=== PATIENT | male | born 1940 | race Caucasian/White ===

== ENCOUNTER 2016-02-04 11:15 | Inpatient (IN) | payer OTHER ==
[~2016-02-04] VITALS: Ht 180.3 cm; Wt 79.4 kg
[~2016-02-04 11:15] MED LIST: ANALGESIC BALM30 GM TOP; ATORVASTATIN CA80 M1 PO; ECOTRIN81 MG PO; EFFIENT10 MG PO; LISINOPRIL2.5 MG PO
--- NOTE | 2016-02-04 11:30 | NUR ---
PT TO ED FOR WEAKNESS, EXERTIONAL SOB AND CHEST PRESSURE FOR THE PAST 24 HOURS. PT DENIES ABD PAIN, FEVER, NVD. PT HAS UROSTOMY AND COLOSTOMY - REPORTING OUTPUT HAS BEEN AT BASELINE. DENIES PALPITATION, DENIES DIZZINESS, DIAPHORESIS, REPORTING SOB RESOLVES AFTER A SHORT PERIOD OF TIME WHEN RESTING.
--- NOTE | 2016-02-04 11:40 | ED GENERAL ADULT ---
History of Present Illness General Chief Complaint: General Adult Stated Complaint: WEAKNESS,DIZZINESS, CP Source: patient Exam Limitations: poor historian Vital Signs & Intake/Output Vital Signs & Intake/Output Vital Signs Date Time Temp Pulse Resp B/P Pulse O2 O2 Flow FiO2 Ox Delivery Rate 02/03 1841 90 02/03 1802 98.0 69 20 122/62 95 Room Air 02/03 1713 97.7 83 18 108/51 95 Room Air 02/03 1356 98.9 96 18 105/58 97 Room Air 02/03 1207 97 02/03 1130 96.1 100 14 97/63 97 Room Air Allergies Coded Allergies: NO KNOWN ALLERGIES (01/29/15) Reconcile Medications Amoxicillin/Clavulanate Potass (Amox-Clav 875-125 MG Tablet) 875 MG-125 MG TABLET 1 TAB PO BID INFECTION (Reported) Aspirin (Aspirin*) 81 MG TAB.CHEW 1 TAB PO DAILY SUPPLEMENT (Reported) Atorvastatin (Atorvastatin Calcium) 80 MG TAB 80 MG PO DAILY CHOLESTEROL ( Reported) Cyanocobalamin (Vitamin B-12) (B-12) 1,000 MCG TABLET 1 TAB PO DAILY SUPPLEMENT (Reported) Folic Acid 1 MG TABLET 1 TAB PO DAILY SUPPLEMENT (Reported) Triage Note: PT TO ED FOR WEAKNESS, EXERTIONAL SOB AND CHEST PRESSURE FOR THE PAST 24 HOURS. PT DENIES ABD PAIN, FEVER, NVD. PT HAS UROSTOMY AND COLOSTOMY - REPORTING OUTPUT HAS BEEN AT BASELINE. DENIES PALPITATION, DENIES DIZZINESS, DIAPHORESIS, REPORTING SOB RESOLVES AFTER A SHORT PERIOD OF TIME WHEN RESTING. Triage Nurses Notes Reviewed? yes Onset: Abrupt Duration: day(s): Timing: recent history HPI: 02/04/16 12:05 PM 75-year-old male presents to the emergency department complaining of weakness, difficulty breathing, and chest pressure. The patient states that he has a past medical history of prostate cancer. He's is status post prostatectomy, cystectomy, colostomy, ureteroileostomy, flap revision. He's had multiple blood transfusions and ongoing anemia. His hemoglobin is been a low as 5 according to the family. Now he presents with the similar symptoms to when he needed a prior blood transfusion; weakness, chest discomfort, and difficulty breathing. He also has a history of atrial fibrillation and is currently not on anticoagulants. Past History Travel History Traveled to [place] past 21 day No Medical History Any Pertinent Medical History? see below for history Neurological: NONE EENT: [place] Cardiovascular: CAD (s/p stent x2), HTN, CHOL CARDIAC STENTS Respiratory: pneumonia Gastrointestinal: COLOSTOMY FISTULA Hepatic: NONE Renal: UROSTOMY BLADDER REMOVED PROSTATE REMOVED Musculoskeletal: NONE Psychiatric: NONE Endocrine: NONE Blood Disorders: NONE Cancer(s): prostate cancer History of MRSA: No History of VRE: No History of CDIFF: No Surgical History Surgical History: hernia repair-inguinal, urostomy colostomy rectocutaneous fistula fractured finger on left hand Psychosocial History Who do you live with Spouse Services at Home None What is your primary language Chadian Tobacco Use: Current Daily Use Daily Tobacco Use Amount/Type: => 5 Cigarettes daily ETOH Use: occasional use Illicit Drug Use: denies illicit drug use Family History Hx Contributory? No Review of Systems Review of Systems Constitutional: Denies: fever. EENTM: Denies: visual changes. Respiratory: Reports: short of breath. Cardiovascular: Reports: chest pain. GI: Denies: abdominal pain. Genitourinary: Reports: no symptoms. Musculoskeletal: Reports: no symptoms. Skin: Reports: no symptoms. Neurological/Psychological: Reports: no symptoms. Hematologic/Endocrine: Reports: no symptoms. Physical Exam Physical Exam General Appearance: alert, awake, anxious, moderate distress Head: atraumatic, normal appearance Eyes: Bilateral: normal appearance, PERRL, EOMI. Ears, Nose, Throat: normal pharynx, normal ENT inspection Neck: normal inspection, supple Respiratory: decreased breath sounds Cardiovascular: regular rate/rhythm Peripheral Pulses: 4+ radial (R), 4+ radial (L) Gastrointestinal: non-tender, colostomy and ureteroileostomy Rectal: heme positive stool, per RN Extremities: no edema Neurologic/Psych: awake, alert, oriented x 3 Skin: pallor Core Measures ACS in differential dx? Yes ASA ordered for poss ACS? No-d/t bleeding/risk of (anemia, guaiac positive colost) CVA/TIA Diagnosis: No Severe Sepsis Present: No Septic Shock Present: No Progress Differential Diagnoses I considered the following diagnoses in my evaluation of the patient: [GI bleed, acute coronary syndrome, symptomatic anemia, pulmonary embolism] Plan of Care: Orders Procedure Date/time Status MAGNESIUM 02/04 600 Active CBC WITHOUT DIFFERENTIAL 02/04 600 Active BASIC ELECTROLYTES PLUS BUN&CR 12/30 0600 Active TROPONIN LEVEL 12/30 0100 Active Nothing by Mouth 02/03 D Active BLOOD PRODUCT PICKUP 02/03 1959 Active Lab Add-on Test 02/03 1859 Active Drains/Tubes 02/03 1841 Complete CIWA 02/03 1841 Active PHOSPHORUS 02/03 1840 Complete MAGNESIUM 02/03 1840 Complete TROPONIN LEVEL 02/03 1800 Complete CBC WITHOUT DIFFERENTIAL 02/03 1800 Complete EKG 02/03 1800 Active Nursing Misc 02/03 1758 Active Teach/Educate 02/03 1732 Active Nutritional Intake, Monitor 02/03 1732 Active Isolation 02/03 1732 Active Intake & Output 02/03 1732 Active Patient Care Conference 02/03 1732 Active Activity/Ambulation 02/03 1732 Active BLOOD PRODUCT PICKUP 02/03 1708 Active URINALYSIS 02/03 1521 Complete Pathway - chart 02/03 1455 Active Patient Data 02/03 1410 Active Admit to inpatient 02/03 1406 Active Vital Signs 02/03 1406 Active Code Status 02/03 1406 Active BLOOD PRODUCT PICKUP 02/03 1248 Active TYPE & SCREEN (NOT X-MATCH) 02/03 1244 Active LEUKOCYTE POOR (PACKED CELLS) 02/03 1234 Active D-DIMER 02/03 1159 Complete TROPONIN LEVEL 02/03 1142 Complete PROTHROMBIN TIME 02/03 1142 Complete COMPREHENSIVE METABOLIC PANEL 02/03 1142 Complete CBC WITHOUT DIFFERENTIAL 02/03 1142 Complete EKG 02/03 1117 Active Saline Lock 02/03 UNK Active House Staff 02/03 UNK Active VTE Mechanical Prophylaxis 02/03 UNK Active Nursing Misc 02/03 UNK Active Hemoccult 02/03 UNK Active EKG 02/03 UNK Active Current Medications Sig/Stephanie Start time Last Medication Dose Stop Time Status Admin Potassium Chloride 40 MEQ .Q10H 02/03 1500 CAN (KCL 40MEQ in D5 1000ml) Dextrose/Water 1,000 ML (D5W 1000) Sodium Chloride 1,000 ML ONCE ONE 02/03 1215 AC (Normal Saline 0.9%) 02/04 0814 Laboratory Tests 02/04/16 1840: Phosphorus 2.8, Magnesium 1.9, Troponin I 0.11 *H, CBC w Diff NO MAN DIFF REQ, RBC 2.81 L, MCV 88.0, MCH 27.8, RDW 16.5 H, MPV 9.0, Gran % 72.6, Lymphocytes % 16.6 L, Monocytes % 7.9, Eosinophils % 2.1, Basophils % 0.8, Absolute Granulocytes 7.5 H, Absolute Lymphocytes 1.7, Absolute Monocytes 0.8 H, Absolute Eosinophils 0.2, Absolute Basophils 0.1, PUBS MCHC 31.6 L 02/04/16 1523: Urine Color YEL, Urine Clarity HAZY H, Urine pH 6.5, Ur Specific [place] 1.010, Urine Protein TRACE H, Urine Ketones NEG, Urine Nitrite POS H, Urine Bilirubin NEG, Urine Urobilinogen 0.2, Ur Leukocyte Esterase LARGE H, Ur Microscopic SEDIMENT EXAMINED, Urine RBC 1-3, Urine WBC > 75 H, Urine Hemoglobin SMALL H, Urine Glucose NEG 02/04/16 1202: D-Dimer Cancelled 02/04/16 1159: Anion Gap 9, Estimated GFR > 60, BUN/Creatinine Ratio 63.8 H, Glucose 230 H, Calcium 8.8, Total Bilirubin 0.4, AST 19, ALT 40, Alkaline Phosphatase 57, Troponin I 0.06, Total Protein 6.0 L, Albumin 3.1 L, Globulin 2.9, Albumin/ Globulin Ratio 1.1, PT 11.5, INR 1.10, D-Dimer 343 H, CBC w Diff NO MAN DIFF REQ, RBC 2.65 L, MCV 87.9, MCH 27.9, RDW 17.4 H, MPV 9.5, Gran % 81.6 H, Lymphocytes % 10.2 L, Monocytes % 6.3, Eosinophils % 1.2, Basophils % 0.7, Absolute Granulocytes 10.1 H, Absolute Lymphocytes 1.3, Absolute Monocytes 0.8 H, Absolute Eosinophils 0.2, Absolute Basophils 0.1, PUBS MCHC 31.7 L Initial ED EKG: NSR, nonspecific ST T wave chg Prior EKG: unchanged Departure Departure Disposition: STILL A PATIENT Condition: Stable Clinical Impression Primary Impression: Symptomatic anemia Secondary Impressions: Chest pain, GI bleed Referrals: LÓPEZ SANDERSON,IMMANUEL Henderson (PCP/Family) Referred to [facility] as new patient No Departure Forms: Customer Survey General Discharge Information Comments The patient was placed on a monitor. He was given blood in the ED. He was admitted to the telemetry unit for serial troponins, blood transfusion, and further care. Chest x-ray was negative IMPRESSION: No acute cardiopulmonary pathology compared to 01/30/2015. DICTATED BY: MURALI REICH MD DATE/TIME DICTATED:02/04/161305 [employer] PANELS PLATER:ARGELIA DATE/TIME TRANSCRIBED:02/04/161305 CONFIDENTIAL, DO NOT COPY WITHOUT APPROPRIATE AUTHORIZATION. <Electronically signed in Other Vendor System> SIGNED BY: MURALI REICH MD 02/04/16 1312 Admission Note Spoke With: JAI JIMENEZ M.D Documentation of Exam: Documentation of any treatments & extenuating circumstances including Concerns Regarding Discharge (functional status, medication knowledge or non-compliance, living conditions, etc.) that warrant an admission rather than observation: [GI CONSULT, BLOOD, SERIAL TROPONINS] Critical Care Note Critical Care Note Critical Care Time: 30-74 min
--- NOTE | 2016-02-04 12:04 | NUR ---
LABS DRAWN AND SENT (BLUE,SST,PINK,LAV,DICKEY)
--- NOTE | 2016-02-04 12:09 | NUR ---
TRIAGE NOTE APPRECIATED PT A/O X3
[2016-02-04 12:24] LABS: PT 11.5 SEC (9.4-12.5)
[2016-02-04 12:26] LABS: ABSOLUTE BASOPHIL COUNT 0.1 /CUMM (0.0-0.2); ABSOLUTE EOSINOPHIL COUNT 0.2 /CUMM (0.0-0.7); ABSOLUTE GRANULOCYTE CT 10.1 /CUMM (1.4-6.5); ABSOLUTE LYMPH COUNT 1.3 /CUMM (1.2-3.4); ABSOLUTE MONOCYTE COUNT 0.8 /CUMM (0.10-0.60); BASOPHIL % 0.7 % (0.0-2.0); EOSINOPHIL % 1.2 % (0-5); GRANULOCYTE % 81.6 % (42.2-75.2); HEMATOCRIT 23.3 % (42-52); MEAN CORPUSCULAR HGB 27.9 PG (27.0-31.0); MEAN CORPUSCULAR HGB CONC 31.7 G/DL (33.0-37.0); MEAN CORPUSCULAR VOLUME 87.9 FL (80.0-94.0); MEAN PLATELET VOLUME 9.5 FL (7.4-10.4); PLATELET COUNT 269 /CUMM (130-400); RBC DISTRIBUTION WIDTH 17.4 % (11.5-14.5); RED BLOOD CELL CT 2.65 /CUMM (4.70-6.10); WHITE BLOOD CELL COUNT 12.3 /CUMM (4.8-10.8)
--- NOTE | 2016-02-04 12:33 | NUR ---
CRITICAL TEST RESULTS [id number] NORMAN TERRAZAS 75 M TESTS AND RESULTS: HGB 7.4 HCT 23.3 Results received and read back by: LUPIS FAGAN Results received date and time: 02/04/16 1233 The following provider was notified of the results, and read the results back: DR. RESTREPO Notified date and time: 02/04/16 at 1233
--- NOTE | 2016-02-04 12:40 | NUR ---
CONSENT SIGNED FOR BLOOD TRANSFUSION
--- NOTE | 2016-02-04 13:12 | RADIOLOGY REPORT ---
EXAMINATION: XR PORTABLE CHEST CLINICAL INFORMATION: Shortness of breath. COMPARISON: CXR from 01/30/2015 TECHNIQUE: Portable view of the chest was obtained. FINDINGS: The patient is slightly rotated to the left. Minimal atelectasis in the lingula adjacent to the pericardiac fat pad -- similar in appearance compared to 01/30/2015. No acute pulmonary consolidation, edema or pleural effusion. Cardiac silhouette is at the upper range of normal size. The bones appear diffusely osteopenic and there is dextrocurvature of the visualized thoracolumbar spine. IMPRESSION: No acute cardiopulmonary pathology compared to 01/30/2015.
[2016-02-04] MEDS ORDERED: B-121000 MC3 PO (13:27)
[2016-02-04] MEDS ORDERED: FOLIC ACID1 M1 PO (13:27)
[2016-02-04] MEDS ORDERED: ASPIRIN81 M4 PO (13:28)
[2016-02-04] MEDS ORDERED: ATORVASTATIN CA80 M1 PO (13:28)
--- NOTE | 2016-02-04 13:48 | History & Physical ---
SHMUEL SANDERSON[place] [place]7: General Information and HPI MD Statement: I have seen and personally examined NORMAN TERRAZAS and documented this H&P. The patient is a 75 year old M who presented with a patient stated chief complaint of weakness . 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 Patient had some chest discomfort last night which has since resolved. He also reports that his stools have been progressively getting darker. Patient was hospitalized for multiple similar episodes in the past 6-8 months in his home town of [place] , the last one in September 2015, during which he was found to be anemic, subsequently receiving blood transfusions. Per patient, work-up during those hospitalizations including endoscopy and colonoscopy has been negative. Patient was hospitalized here at [facility] in January 2015 for an acute lower GI bleed which required multiple blood transfusions and underwent evaluation under anesthesia with concomitant flexible sigmoidoscopy performed by colorectal surgical team which showed large amount of blood clots in the rectum resulting from the large communication between the distal rectum and prostate bed, with no evidence of active bleeding. Allergies/Medications Allergies: Coded Allergies: NO KNOWN ALLERGIES (01/29/15) Past History Travel History Traveled to [place] past 21 day No Medical History Blood Transfusion Hx: Yes Neurological: NONE EENT: AKIAK Cardiovascular: CAD (s/p stent x2), hypertension Respiratory: pneumonia Gastrointestinal: COLOSTOMY FISTULA Hepatic: NONE Renal: UROSTOMY BLADDER REMOVED PROSTATE REMOVED Musculoskeletal: NONE Psychiatric: NONE Endocrine: NONE Blood Disorders: NONE Cancer(s): prostate cancer History of MRSA: No History of VRE: No History of CDIFF: No Surgical History Surgical History: hernia repair-inguinal, urostomy colostomy rectocutaneous fistula fractured finger on left hand, colostomy, cystoprostatectomy Past Family/Social History Psychosocial History Where do you live? Home Who Do You Live With? spouse Services at Home: None Smoking Status: Current Everyday Smoker (< 1 PPD for ~50 years) ETOH Use: 2 glasses of scotch per day Illicit Drug Use: denies illicit drug use Functional Ability ADLs Independent: dressing, eating, toileting, bathing. Ambulation: independent IADLs Independent: shopping, housework, finances, food prep, telephone, transportation , medication admin. Employment History Employment Retired Profession/Employer [employer] Review of Systems Review of Systems Constitutional: Reports: weakness. Denies: chills, fever. EENTM: Reports: no symptoms. Cardiovascular: Reports: chest pain. Denies: edema, palpitations, syncope. Respiratory: Reports: cough, short of breath. Denies: sputum production. GI: Reports: melena. Denies: abdominal pain, constipation, diarrhea, nausea, vomiting. Genitourinary: Denies: dysuria, frequency, hematuria. Musculoskeletal: Reports: no symptoms. Skin: Reports: no symptoms. Neurological/Psychological: Reports: no symptoms. Hematologic/Endocrine: Reports: bleeding. Denies: bruising. Immunologic/Allergic: Reports: no symptoms. All Other Systems: Reviewed and Negative Exam & Diagnostic Data Last 24 Hrs of Vital Signs/I&O Vital Signs Date Time Temp Pulse Resp B/P Pulse O2 O2 Flow FiO2 Ox Delivery Rate 02/03 1841 90 02/03 1802 98.0 69 20 122/62 95 Room Air 02/03 1713 97.7 83 18 108/51 95 Room Air 02/03 1356 98.9 96 18 105/58 97 Room Air 02/03 1207 97 02/03 1130 96.1 100 14 97/63 97 Room Air Intake & Output 02/03 1600 02/03 0800 02/03 0000 Intake Total Output Total Balance Patient 79.379 kg Weight Physical Exam General Appearance Alert, Oriented X3, No Acute Distress Skin Conjunctival Pallor HEENT Mucous Membr. moist/pink Neck Supple, No JVD, +2 Carotid Pulse wo Bruit Cardiovascular Regular Rate, Normal S1, Normal S2, Grade 3/6 Systolic Murmur Best [place] Lungs Clear to Auscultation, Tachypneic Abdomen Soft, No Tenderness, Positive Bowel Sounds, Right-Sided Urostomy, Left- Sided Colostomy Neurological No Gross Focal Deficits Noted Extremities No Clubbing, No Cyanosis, Trace Edema on Bilateral Lower Extremities , L >> R Last 24 Hrs of Labs/Julian: Laboratory Tests 02/04/16 1840: Phosphorus 2.8, Magnesium 1.9, Troponin I 0.11 *H, CBC w Diff NO MAN DIFF REQ, RBC 2.81 L, MCV 88.0, MCH 27.8, RDW 16.5 H, MPV 9.0, Gran % 72.6, Lymphocytes % 16.6 L, Monocytes % 7.9, Eosinophils % 2.1, Basophils % 0.8, Absolute Granulocytes 7.5 H, Absolute Lymphocytes 1.7, Absolute Monocytes 0.8 H, Absolute Eosinophils 0.2, Absolute Basophils 0.1, PUBS MCHC 31.6 L 02/04/16 1523: Urine Color YEL, Urine Clarity HAZY H, Urine pH 6.5, Ur Specific [place] 1.010, Urine Protein TRACE H, Urine Ketones NEG, Urine Nitrite POS H, Urine Bilirubin NEG, Urine Urobilinogen 0.2, Ur Leukocyte Esterase LARGE H, Ur Microscopic SEDIMENT EXAMINED, Urine RBC 1-3, Urine WBC > 75 H, Urine Hemoglobin SMALL H, Urine Glucose NEG 02/04/16 1202: D-Dimer Cancelled 02/04/16 1159: Anion Gap 9, Estimated GFR > 60, BUN/Creatinine Ratio 63.8 H, Glucose 230 H, Calcium 8.8, Total Bilirubin 0.4, AST 19, ALT 40, Alkaline Phosphatase 57, Troponin I 0.06, Total Protein 6.0 L, Albumin 3.1 L, Globulin 2.9, Albumin/ Globulin Ratio 1.1, PT 11.5, INR 1.10, D-Dimer 343 H, CBC w Diff NO MAN DIFF REQ, RBC 2.65 L, MCV 87.9, MCH 27.9, RDW 17.4 H, MPV 9.5, Gran % 81.6 H, Lymphocytes % 10.2 L, Monocytes % 6.3, Eosinophils % 1.2, Basophils % 0.7, Absolute Granulocytes 10.1 H, Absolute Lymphocytes 1.3, Absolute Monocytes 0.8 H, Absolute Eosinophils 0.2, Absolute Basophils 0.1, PUBS MCHC 31.7 L Diagnostic Data EKG Results Sinus rhythm HR 97 Probable left atrial abnormality Borderline left axis deviation QTc 493 CXR Results No acute cardiopulmonary pathology compared to 01/30/2015. 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 #ABLA 2/2 GI Bleed: Hgb 7.4, guaiac positive stools and elevated BUN 51 concerning for acute bleed. Although melena would be more consistent with upper GI bleeding, lower GI bleeding is a possibility as well given patient's history of rectocutaneous fistula s/p diverting end colostomy as well as recent history of lower GI bleed. * GI and Colorectal surgery consulted. Appreciate their recs. * Two large bore IVs inserted. * Keep patient NPO. * Type and screen ordered. * Protonix 40 mg IV Q12H started. * Will transfuse 2 units of pRBCs. * Monitor H/H and transfuse as needed to keep Hgb > 8 in the setting of CAD. * Avoid all anti-coagulants and anti-platelet agents. #CAD: S/p stent placement x 2. First set of troponins negative. EKG with NSR and no ST-T wave abnormalities. * Cardiology consulted. Appreciate their recs. * Continuous telemetry monitoring. * Trend serial troponins and EKG. #Infrarenal AAA: History of infrarenal AAA with CT Abdomen/Pelvis in January 2015 that had shown increase in size from 4.2 cm to 4.5 cm. * Abdominal US US ordered to evaluate for interval increase in size of aneurysm. #Elevated d-dimer: D-dimer slightly elevated at 343 concerning for thrombosis. Although patient has asymmetric BLE on exam, L >> R, this is chronic per patient 2/2 to rectocutaneous fistula. * Doppler US ordered to rule out DVT. #HFpEF: Most recent ECHO with LVEF of 80%. No signs of volume overload on exam. CXR with no evidence of pulmonary edema. No evidence of decompensated CHF. Diet: NPO DVT PPx: ALPs CODE: FULL As Ranked By This Provider Problem List: 1. Rectocutaneous fistula 2. GI bleed 3. Acute blood loss anemia 4. Symptomatic anemia 5. Aneurysm of infrarenal abdominal aorta 6. H/O heart artery stent 7. CAD (coronary artery disease) 8. Melena 9. Atrial fibrillation Core Measures/Miscellaneous Acute Coronary Syndrome ACS Diagnosis: No Cerebrovascular Accident CVA/TIA Diagnosis: No Congestive Heart Failure CHF Diagnosis: No Venous Thromboembolism VTE Risk Factors: Acute medical illness, Age > 40, Smoking VTE Prophylaxis Ordered Inpt: Mechanical (ALPS/TEDS) No Mech VTE prophylaxis d/t: No contraindications No VTE Pharm Prophylaxis d/t: Active bleeding VTE Diagnosis: No VTE Type: NONE VTE Confirmed by (Test): NONE Severe Sepsis Severe Sepsis Present: No Septic Shock Septic Shock Present: No Miscellaneous Documentation Attending Case Discussed With: VITOR POWELL MD Primary Care Physician: IMMANUEL DAWN MD Patient sees these [facility] in [place] Level of Patient Care: Telemetry JULIO SANDERSON,GUTIERREZ 02/04/16 1536: Resident Review Statement Resident Statement: examined this patient, discussed with sports intern, agreed with sports intern, discussed with family, reviewed EMR data (avail), discussed with nursing , discussed with case mgmt, reviewed images, amended to note Other Findings: Norman is a 77-year-old man with a medical history of prostate cancer status post radiation therapy approximately 13 years ago which was complicated by a rectourethral fistula, and subsequently had a prostatectomy with cystectomy and ileal conduit formation 7 years ago. Which resulted in a rectum to prostate fossa to left inguinal crease fistula i.e. rectocutaneous fistula requiring diverting end colostomy 2 years ago, coronary artery disease status post PCI 2 stents 01/13/2015, was hospitalized in 01/31/2015 for an acute lower GI bleed requiring multiple blood transfusions, and ICU admission, and evaluation under anesthesia with concomitant flexible sigmoidoscopy performed by colorectal surgical team. Additionally, he has a history of atrial fibrillation, some day smoker, diastolic congestive heart failure with ejection fraction of 80%, he has an infrarenal abdominal aortic aneurysm with a 4.5 cm diameter chest increased since the previous study. At present the patient presents with complaints of weakness dizziness dyspnea, and mild intermittent chest discomfort as well as melanotic stooling. At the time of evaluation, he still feels quite uncomfortable, continues to complain of shortness of breath, weakness poor appetite and chest discomfort. Vital signs: Temperature 90.6F heart rate is 100 bpm, blood pressure is 97/63 mmHg, oxygen saturation 97% on room air. Hemoglobin is 7.4. Chemistries notable for elevated BUN 51. First set of troponin negative, and EKG demonstrates normal sinus rhythm without evidence of ischemia. A d-dimer was checked in the emergency department which is slightly elevated at 343. Chest x-ray is clear.*, He is receiving blood transfusions and fluid bolus in the emergency department. Given the patient's symptoms, in conjunction with hemoglobin and blood urea nitrogen elevation consistent with an acute blood loss anemia likely in the gastrointestinal tract. - Problems - Acute GIB Acute bloos loss anemia CAD HFpEF (Hyperdynamic EF) AAA Elevated D-Dimer - Plan - Continues cardiac telemetry monitoring Maintain 2 large-bore IVs Type and screen Serial CBC Guaiac all stool Follow-up urinalysis Obtain serial enzymes and EKG Continue packed red blood cell transfusion for hemoglobin greater than or equal to 8 Avoid all anticoagulants and antiplatelet medications IV Protonix 40 mg every 12 Keep nothing by mouth Urgent GI consultation Consider colorectal surgery evaluation Obtain ultrasound of aorta Consider lower extremity Doppler ultrasound Cardiology evaluation DVT prophylaxis Alps Full code [facility] 1624: General Information and HPI Allergies/Medications Home Med list Amoxicillin/Clavulanate Potass (Amox-Clav 875-125 MG Tablet) 875 MG-125 MG TABLET 1 TAB PO BID INFECTION (Reported) Aspirin (Aspirin*) 81 MG TAB.CHEW 1 TAB PO DAILY SUPPLEMENT (Reported) Atorvastatin (Atorvastatin Calcium) 80 MG TAB 80 MG PO DAILY CHOLESTEROL ( Reported) Cyanocobalamin (Vitamin B-12) (B-12) 1,000 MCG TABLET 1 TAB PO DAILY SUPPLEMENT (Reported) Folic Acid 1 MG TABLET 1 TAB PO DAILY SUPPLEMENT (Reported) Metoprolol Succinate 25 MG TAB 1 TAB PO DAILY ABDOMINAL AORTIC ANEURYSM Omeprazole Magnesium (Prilosec Otc) 20 MG TABLET.DR 1 TAB PO DAILY STOMACH HEALTH Attending MD Review Statement Attending Statement Attending MD Statement: examined this patient, discuss w/resident/PA/POWER SYSTEMS ENGINEER, agreed w/resident/PA/POWER SYSTEMS ENGINEER, reviewed EMR data (avail) Attending Assessment/Plan: 75M PMH prostate cancer s/p radiotherapy 10+ years ago c/b rectrourethral fistula s/p prostatectomy, cystectomy and ileal conduit, also complicated by rectocutaneous fistula s/p diverting colostomy, CAD s/p stent x2 1 year ago, history of upper and lower GI bleed, paroxysmal atrial fibrillation, active smoker, chronic diastolic CHF, AAA 4.5cm, presenting with weakness, fatigue, lightheadedness and melanotic stools in the setting of upper GI bleed. Received 2 units pRBC on admission, Hgb now stable at 8.1 Plan - Admit to telemetry - Follow GI recommendations - Continue PPI - Continue home medications - Recheck Hgb tonight and tomorrow morning - NPO for EGD
[2016-02-04] MEDS ORDERED: AMOX-CLAV 875-1 EACH PO (13:58)
--- NOTE | 2016-02-04 13:58 | NUR ---
BLOOD TRANSFUSION STARTED DIRECTED VSS PT COMFORTABLE AT THIS TIME
--- NOTE | 2016-02-04 14:38 | NUR ---
PT HAS A BED 172
--- NOTE | 2016-02-04 15:10 | NUR ---
PT RESTING NO DISTRESS NOTED
--- NOTE | 2016-02-04 16:27 | NUR ---
PT TO US
--- NOTE | 2016-02-04 16:41 | NUR ---
PHARMACY MIXING [facility]
--- NOTE | 2016-02-04 17:11 | NUR ---
PT RETURNED FROM US [facility] INFUSING DIRECTED TRANSPORT CALLED
--- NOTE | 2016-02-04 17:30 | ULTRASOUND REPORT ---
EXAMINATION: US TRIPLEX LOWER EXTREMITY, BILATERAL CLINICAL INFORMATION: Elevated d-dimer. Chest pain. COMPARISON: None. TECHNIQUE: Color-flow triplex imaging with spectral analysis and compression Doppler were performed on the bilateral lower extremities. FINDINGS: Respiratory variation, normal compression and augmented flow are noted throughout the bilateral lower extremities. The visualized common femoral vein, superficial femoral vein, profunda femoral vein, popliteal vein and mid calf peroneal and posterior tibial venous segments show no evidence of deep venous thrombosis. There is a popliteal cyst measuring 0.8 x 0.9 x 0.5 cm IMPRESSION: Normal triplex scan without evidence of deep venous thrombosis involving the bilateral lower extremities.
--- NOTE | 2016-02-04 17:44 | ULTRASOUND REPORT ---
EXAMINATION: US RETROPERITONEAL LIMITED (AORTA) CLINICAL INFORMATION: Evaluate for abdominal aortic aneurysm. COMPARISON: CT abdomen and pelvis with contrast 01/30/2015. TECHNIQUE: Grayscale, color Doppler and spectral Doppler evaluation of the abdominal aorta. FINDINGS: Limited exam secondary to overlying bowel gas. The proximal segment of the abdominal aorta is obscured by overlying bowel gas. The distal segment of the abdominal aorta is aneurysmally dilated, as detailed below. The measurements of the aorta in maximum AP and transverse dimensions respectively are as follows: Proximal: Obscured secondary to overlying bowel gas. Mid: 2.0 x 2.0 cm. Distal: 3.9 x 4.5 cm. The measurements of the common iliac arteries in maximum AP dimension are as follows: Right Common Iliac Artery: 0.5 cm. Left Common Iliac Artery: 0.5 cm. IMPRESSION: Limited exam secondary to overlying bowel gas. The proximal segment of the abdominal aorta is obscured by overlying bowel gas. The distal segment of the abdominal aorta is aneurysmally dilated and is visualized measuring 3.9 x 4.5 cm in AP and transverse dimensions respectively, not significantly changed in caliber relative to a prior contrast-enhanced CT of the abdomen and pelvis dating back to 01/30/2015 in which it measured 4.3 x 4.4 cm in similar dimensions. Differences in measurements between the aneurysm sac are likely secondary to differences in technique.
[2016-02-04 18:02] VITALS: BP 122/62
[2016-02-04 19:37] LABS: ABSOLUTE BASOPHIL COUNT 0.1 /CUMM (0.0-0.2); ABSOLUTE EOSINOPHIL COUNT 0.2 /CUMM (0.0-0.7); ABSOLUTE LYMPH COUNT 1.7 /CUMM (1.2-3.4); ABSOLUTE MONOCYTE COUNT 0.8 /CUMM (0.10-0.60); RBC DISTRIBUTION WIDTH 16.5 % (11.5-14.5)
[2016-02-04 19:41] LABS: ABSOLUTE GRANULOCYTE CT 7.5 /CUMM (1.4-6.5); BASOPHIL % 0.8 % (0.0-2.0); EOSINOPHIL % 2.1 % (0-5); GRANULOCYTE % 72.6 % (42.2-75.2); HEMATOCRIT 24.8 % (42-52); MEAN CORPUSCULAR HGB 27.8 PG (27.0-31.0); MEAN CORPUSCULAR HGB CONC 31.6 G/DL (33.0-37.0); PLATELET COUNT 239 /CUMM (130-400); RED BLOOD CELL CT 2.81 /CUMM (4.70-6.10); WHITE BLOOD CELL COUNT 10.3 /CUMM (4.8-10.8)
--- NOTE | 2016-02-04 21:57 | Cons- Gastroenterology ---
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 Earlier this year he had chronic/recurrent bleeding (in [place], records not available) with Hemoccult-positive to melenic stools in his colostomy bag. He required numerous transfusions. Apparently, EGD was unrevealing, and colonoscopy did not reveal a bleeding site, although polyps were removed (he claims two were left intact, for unclear reasons, and are to be removed at a later date). His hemoglobin apparently stabilized in about September, and was climbing by December. The patient is visiting family in [place] for the holidays. Over the past several days his stools have been darker. He developed significant dyspnea and brief episodic chest pain, similar to when he was anemic earlier this year. He was found to be anemic in the emergency room, and his stool guaiac positive. The patient has belching, but no heartburn, dyspepsia, dysphagia, abdominal pain , diarrhea. There is no known liver disease. He has coronary stents but takes aspirin only, and no other antiplatelet or anticoagulation agents. Family history is negative for peptic ulcer disease, GI malignancy. Social history: the patient smokes cigarettes daily; no significant alcohol. Allergies/Medications Allergies: Coded Allergies: NO KNOWN ALLERGIES (01/29/15) Home Med List: Amoxicillin/Clavulanate Potass (Amox-Clav 875-125 MG Tablet) 875 MG-125 MG TABLET 1 TAB PO BID INFECTION (Reported) Aspirin (Aspirin*) 81 MG TAB.CHEW 1 TAB PO DAILY SUPPLEMENT (Reported) Atorvastatin (Atorvastatin Calcium) 80 MG TAB 80 MG PO DAILY CHOLESTEROL ( Reported) Cyanocobalamin (Vitamin B-12) (B-12) 1,000 MCG TABLET 1 TAB PO DAILY SUPPLEMENT (Reported) Folic Acid 1 MG TABLET 1 TAB PO DAILY SUPPLEMENT (Reported) Current Medications: Current Medications Sig/Stephanie Start time Last Medication Dose Route Stop Time Status Admin Magnesium Sulfate 1 GM ONCE ONE 02/03 2015 AC 02/03 Dextrose/Water 100 ML IV 02/04 0014 2130 Pantoprazole Sodium 0 .STK-MED ONE 02/03 1530 DC IV Pantoprazole Sodium 40 MG Q12 02/03 1516 AC 02/03 Sodium Chloride 100 ML IV 2130 Potassium Chloride 40 MEQ Q10H 02/03 1615 AC 02/03 Dextrose/Water 1,000 ML IV 1710 Potassium Chloride 40 MEQ .Q10H 02/03 1500 CAN Dextrose/Water 1,000 ML IV Sodium Chloride 1,000 ML ONCE ONE 02/03 1215 AC IV 02/04 0814 Past History Travel History Traveled to [place] past 21 day No Medical History Blood Transfusion Hx: Yes Neurological: NONE EENT: [place] Cardiovascular: CAD (s/p stent x2), HTN, CHOL CARDIAC STENTS IRR HEARTBEAT Respiratory: pneumonia Gastrointestinal: COLOSTOMY FISTULA REPAIRED Hepatic: NONE Renal: UROSTOMY BLADDER REMOVED PROSTATE REMOVED HAS CATH IN PENIS FOR DRA ROBLES Musculoskeletal: ARTHRITIS Psychiatric: NONE Endocrine: NONE Blood Disorders: NONE Cancer(s): prostate cancer Surgical History Surgical History: hernia repair-inguinal, urostomy colostomy rectocutaneous fistula fractured finger on left hand Psychosocial History Where Do You Live? Home Services at Home: None Smoking Status: Current Everyday Smoker ETOH Use: occasional use Illicit Drug Use: denies illicit drug use Functional Ability ADLs Independent: dressing, eating, toileting, bathing. Ambulation: independent IADLs Independent: shopping, housework, finances, food prep, telephone, transportation , medication admin. Review of Systems Review of Systems Constitutional: Denies: chills, fever. EENTM: Denies: icterus, epistaxis. Cardiovascular: Reports: chest pain. Denies: edema, palpitations, syncope. Respiratory: Reports: cough, short of breath. GI: Reports: see HPI. Genitourinary: Denies: hematuria, pain. Musculoskeletal: Denies: muscle stiffness, neck pain. Skin: Denies: jaundice, lesions. Neurological/Psychological: Denies: anxiety, confusion. Hematologic/Endocrine: Reports: bleeding. Denies: bruising. Exam & Diagnostic Data Vital Signs and I&O Vital Signs Date Time Temp Pulse Resp B/P Pulse O2 O2 Flow FiO2 Ox Delivery Rate 02/03 1841 90 02/03 1802 98.0 69 20 122/62 95 Room Air 02/03 1713 97.7 83 18 108/51 95 Room Air 02/03 1356 98.9 96 18 105/58 97 Room Air 02/03 1207 97 02/03 1130 96.1 100 14 97/63 97 Room Air Intake & Output 02/03 1600 02/03 0400 02/02 1600 02/02 0400 02/01 1600 02/01 0400 Intake Total Output Total Balance Patient 175 lb Weight Physical Exam: Well-developed well-nourished, no apparent distress. Alert and oriented with normal cognition. Coughing. Skin without lesion, jaundice. No adenopathy. Sclera anicteric. No oropharyngeal lesion. No neck masses or thyromegaly. Heart regular rhythm with a 3/6 holosystolic murmur. Lungs clear bilaterally. Abdomen nondistended and soft with normal bowel sounds. Right sided urine collecting bag; left-sided colostomy. Perineum/rectum examination deferred. No tenderness, mass or organomegaly. Extremities with trace edema. Pulses intact. Results Pertinent Lab Results: Laboratory Tests 02/03 02/03 1840 1523 Chemistry Phosphorus (2.5 - 4.5 mg/dL) 2.8 Magnesium (1.6 - 2.3 mg/dL) 1.9 Troponin I (<0.11 ng/ml) 0.11 *H Hematology CBC w Diff NO MAN DIFF REQ WBC (4.8 - 10.8 /CUMM) 10.3 RBC (4.70 - 6.10 /CUMM) 2.81 L Hgb (14.0 - 18.0 G/DL) 7.8 L Hct (42 - 52 %) 24.8 L MCV (80.0 - 94.0 FL) 88.0 MCH (27.0 - 31.0 PG) 27.8 RDW (11.5 - 14.5 %) 16.5 H Plt Count (130 - 400 /CUMM) 239 MPV (7.4 - 10.4 FL) 9.0 Gran % (42.2 - 75.2 %) 72.6 Lymphocytes % (20.5 - 51.1 %) 16.6 L Monocytes % (1.7 - 9.3 %) 7.9 Eosinophils % (0 - 5 %) 2.1 Basophils % (0.0 - 2.0 %) 0.8 Absolute Granulocytes (1.4 - 6.5 /CUMM) 7.5 H Absolute Lymphocytes (1.2 - 3.4 /CUMM) 1.7 Absolute Monocytes (0.10 - 0.60 /CUMM) 0.8 H Absolute Eosinophils (0.0 - 0.7 /CUMM) 0.2 Absolute Basophils (0.0 - 0.2 /CUMM) 0.1 PUBS MCHC (33.0 - 37.0 G/DL) 31.6 L Urines Urine Color (YEL,AMB,STR) YEL Urine Clarity (CLEAR) HAZY H Urine pH (5.0 - 8.0) 6.5 Ur Specific [place] (1.001 - 1.035) 1.010 Urine Protein (NEG,<30 MG/DL) TRACE H Urine Ketones (NEG) NEG Urine Nitrite (NEG) POS H Urine Bilirubin (NEG) NEG Urine Urobilinogen (0.1 - 1.0 EU/dl) 0.2 Ur Leukocyte Esterase (NEG) LARGE H Ur Microscopic SEDIMENT EXAMINED Urine RBC (0 - 5 /HPF) 1-3 Urine WBC (0 - 2 /HPF) > 75 H Urine Hemoglobin (NEG) SMALL H Urine Glucose (N MG/DL) NEG 02/03 02/03 1202 1159 Chemistry Sodium (137 - 145 mmol/L) 139 Potassium (3.5 - 5.1 mmol/L) 4.8 Chloride (98 - 107 mmol/L) 106 Carbon Dioxide (22 - 30 mmol/L) 24 Anion Gap (5 - 16) 9 BUN (9 - 20 mg/dL) 51 H Creatinine (0.7 - 1.2 mg/dL) 0.8 Estimated GFR (>60 ml/min) > 60 BUN/Creatinine Ratio (7 - 25 %) 63.8 H Glucose (65 - 99 mg/dL) 230 H Calcium (8.4 - 10.2 mg/dL) 8.8 Total Bilirubin (0.2 - 1.3 mg/dL) 0.4 AST (17 - 59 U/L) 19 ALT (21 - 72 U/L) 40 Alkaline Phosphatase (< 127 U/L) 57 Troponin I (<0.11 ng/ml) 0.06 Total Protein (6.3 - 8.2 g/dL) 6.0 L Albumin (3.5 - 5.0 g/dL) 3.1 L Globulin (1.9 - 4.2 gm/dL) 2.9 Albumin/Globulin Ratio (1.1 - 2.2 %) 1.1 Coagulation PT (9.4 - 12.5 SEC) 11.5 INR (0.90 - 1.17) 1.10 D-Dimer (70 - 232 ng/ml) Cancelled 343 H Hematology CBC w Diff NO MAN DIFF REQ WBC (4.8 - 10.8 /CUMM) 12.3 H RBC (4.70 - 6.10 /CUMM) 2.65 L Hgb (14.0 - 18.0 G/DL) 7.4 *L Hct (42 - 52 %) 23.3 L MCV (80.0 - 94.0 FL) 87.9 MCH (27.0 - 31.0 PG) 27.9 RDW (11.5 - 14.5 %) 17.4 H Plt Count (130 - 400 /CUMM) 269 MPV (7.4 - 10.4 FL) 9.5 Gran % (42.2 - 75.2 %) 81.6 H Lymphocytes % (20.5 - 51.1 %) 10.2 L Monocytes % (1.7 - 9.3 %) 6.3 Eosinophils % (0 - 5 %) 1.2 Basophils % (0.0 - 2.0 %) 0.7 Absolute Granulocytes (1.4 - 6.5 /CUMM) 10.1 H Absolute Lymphocytes (1.2 - 3.4 /CUMM) 1.3 Absolute Monocytes (0.10 - 0.60 /CUMM) 0.8 H Absolute Eosinophils (0.0 - 0.7 /CUMM) 0.2 Absolute Basophils (0.0 - 0.2 /CUMM) 0.1 PUBS MCHC (33.0 - 37.0 G/DL) 31.7 L Assessment/Plan Assessment/Recommendations: Recurrent occult GI bleeding, with evidence of blood loss (symptomatic) anemia. Etiology unclear, but this is likely upper GI given elevated BUN and historical melena. He is on aspirin, smokes cigarettes. The patient is hemodynamically stable. The patient also has a large AAA, but this is likely incidental at this time. Recommendations * 2 IVs * Nothing by mouth after midnight * IV PPI * Continue aspirin given CAD/stents * Transfusion of 2 units of packed red blood cells * Check CBC following transfusion, and in the morning. Maintain hemoglobin greater than 8 * EGD +/- enteroscopy tomorrow * Please call GI with evidence of active bleeding such as tachycardia, hypotension, hematemesis, melena, hematochezia. At that time would also transfer the patient to the ICU. Consult Acknowledgment - Thank you for your consult request.
[2016-02-04 23:00] VITALS: BP 128/48
[2016-02-05] VITALS (9 sets, daily range): BP systolic 102–122; BP diastolic 52–70
[2016-02-05 02:27] LABS: ABSOLUTE BASOPHIL COUNT 0.1 /CUMM (0.0-0.2); ABSOLUTE EOSINOPHIL COUNT 0.3 /CUMM (0.0-0.7); ABSOLUTE GRANULOCYTE CT 5.7 /CUMM (1.4-6.5); ABSOLUTE LYMPH COUNT 1.5 /CUMM (1.2-3.4); ABSOLUTE MONOCYTE COUNT 0.7 /CUMM (0.10-0.60); BASOPHIL % 0.7 % (0.0-2.0); EOSINOPHIL % 3.1 % (0-5); GRANULOCYTE % 69.2 % (42.2-75.2); HEMATOCRIT 24.2 % (42-52); MEAN CORPUSCULAR HGB 29.4 PG (27.0-31.0); MEAN CORPUSCULAR HGB CONC 33.5 G/DL (33.0-37.0); MEAN CORPUSCULAR VOLUME 87.5 FL (80.0-94.0); MEAN PLATELET VOLUME 9.6 FL (7.4-10.4); PLATELET COUNT 206 /CUMM (130-400); RBC DISTRIBUTION WIDTH 16.1 % (11.5-14.5); RED BLOOD CELL CT 2.77 /CUMM (4.70-6.10); WHITE BLOOD CELL COUNT 8.3 /CUMM (4.8-10.8)
[2016-02-05 06:11] LABS: ABSOLUTE BASOPHIL COUNT 0.1 /CUMM (0.0-0.2); ABSOLUTE EOSINOPHIL COUNT 0.3 /CUMM (0.0-0.7); ABSOLUTE GRANULOCYTE CT 6.1 /CUMM (1.4-6.5); ABSOLUTE LYMPH COUNT 1.3 /CUMM (1.2-3.4); ABSOLUTE MONOCYTE COUNT 0.7 /CUMM (0.10-0.60); BASOPHIL % 0.9 % (0.0-2.0); EOSINOPHIL % 3.6 % (0-5); GRANULOCYTE % 72.3 % (42.2-75.2); HEMATOCRIT 25.6 % (42-52); MEAN CORPUSCULAR HGB 28.2 PG (27.0-31.0); MEAN CORPUSCULAR HGB CONC 31.7 G/DL (33.0-37.0); MEAN PLATELET VOLUME 9.1 FL (7.4-10.4); PLATELET COUNT 197 /CUMM (130-400); RBC DISTRIBUTION WIDTH 15.9 % (11.5-14.5); RED BLOOD CELL CT 2.88 /CUMM (4.70-6.10); WHITE BLOOD CELL COUNT 8.5 /CUMM (4.8-10.8)
--- NOTE | 2016-02-05 07:34 | PN- Housestaff ---
SHMUEL SANDERSON,[facility] 02/05/16 0733: Subjective Follow-up For: ABLA 2/2 GI bleed CAD Infrarenal AAA Elevated d-dimer Tele-Events Since Last Visit: Sinus rhythm. HR 52-79. Episode of 14-beat run of asymptomatic vtach and bradycardia to 45-48. Subjective: No acute events overnight. Patient seen and examined this morning. He complains of back pain. He denies chest pain or palpitations. Review of Systems Constitutional: Reports: see HPI. Objective Last 24 Hrs of Vital Signs/I&O Vital Signs Date Time Temp Pulse Resp B/P Pulse O2 O2 Flow FiO2 Ox Delivery Rate 02/04 1200 97.2 68 20 116/70 02/04 1000 98.7 67 20 118/56 02/04 0836 97.7 67 18 118/56 94 Room Air 02/04 0800 Room Air 02/04 0800 97.7 67 18 118/56 02/03 2300 97.8 80 18 128/48 95 Room Air 02/03 1841 90 02/03 1802 98.0 69 20 122/62 95 Room Air 02/03 1713 97.7 83 18 108/51 95 Room Air Intake & Output 02/04 1600 02/04 0800 02/04 0000 Intake Total 800 540 Output Total 800 551 Balance 0 -11 Intake, IV 800 240 Intake, Oral 0 300 Number 1 Bowel Movements Output, Stool 1 Output, Urine 800 550 Patient 79.379 kg Weight Physical Exam General Appearance: Alert, Oriented X3, No Acute Distress HEENT: Mucous Membr. moist/pink Cardiovascular: Regular Rate, Normal S1, Normal S2, Grade 3/6 Systolic Murmur Most Pronounced At [place] Lungs: Clear to Auscultation, Normal Air Movement Abdomen: Soft, No Tenderness, Positive Bowel Sounds Extremities: No Clubbing, No Cyanosis, Trace Edema on Bilateral Lower Extremities, L >> R Current Medications: Current Medications Sig/Stephanie Start time Last Medication Dose Route Stop Time Status Admin Acetaminophen 650 MG Q4P PRN 02/04 0545 AC 02/04 PO 0553 Aspirin 81 MG DAILY 02/04 1318 AC PO Benzocaine 1 CRICKET .STK-MED ONE 02/04 1122 DC TOP 02/04 1123 Lidocaine 2 CRICKET .STK-MED ONE 02/04 112 DC TOP 02/04 1123 Magnesium Sulfate 1 GM ONCE ONE 02/03 2015 DC 02/03 Dextrose/Water 100 ML IV 02/04 0014 2130 Pantoprazole Sodium 40 MG Q12 02/04 1100 AC 02/04 IV 1147 Pantoprazole Sodium 0 .STK-MED ONE 02/03 1530 DC IV Pantoprazole Sodium 40 MG Q12 02/03 1516 DC 02/03 Sodium Chloride 100 ML IV 2130 Potassium Chloride 40 MEQ Q10H 02/03 1615 AC 02/04 Dextrose/Water 1,000 ML IV 0526 Potassium Chloride 40 MEQ .Q10H 02/03 1500 CAN Dextrose/Water 1,000 ML IV Sodium Chloride 1,000 ML ONCE ONE 02/03 1215 DC IV 02/04 0814 Last 24 Hrs of Lab/Julian Results Last 24 Hrs of Labs/Mics: Laboratory Tests 02/05/16 0520: Anion Gap 5, Estimated GFR > 60, BUN/Creatinine Ratio 34.4 H, Magnesium 2.0, CBC w Diff NO MAN DIFF REQ, RBC 2.88 L, MCV 89.0, MCH 28.2, RDW 15.9 H, MPV 9.1, Gran % 72.3, Lymphocytes % 14.8 L, Monocytes % 8.4, Eosinophils % 3.6, Basophils % 0.9, Absolute Granulocytes 6.1, Absolute Lymphocytes 1.3, Absolute Monocytes 0.7 H, Absolute Eosinophils 0.3, Absolute Basophils 0.1, PUBS MCHC 31.7 L 02/05/16 0140: Troponin I 0.09, CBC w Diff NO MAN DIFF REQ, RBC 2.77 L, MCV 87.5, MCH 29.4, RDW 16.1 H, MPV 9.6, Gran % 69.2, Lymphocytes % 18.2 L, Monocytes % 8.8, Eosinophils % 3.1, Basophils % 0.7, Absolute Granulocytes 5.7, Absolute Lymphocytes 1.5, Absolute Monocytes 0.7 H, Absolute Eosinophils 0.3, Absolute Basophils 0.1, PUBS MCHC 33.5 02/04/16 1840: Phosphorus 2.8, Magnesium 1.9, Troponin I 0.11 *H, CBC w Diff NO MAN DIFF REQ, RBC 2.81 L, MCV 88.0, MCH 27.8, RDW 16.5 H, MPV 9.0, Gran % 72.6, Lymphocytes % 16.6 L, Monocytes % 7.9, Eosinophils % 2.1, Basophils % 0.8, Absolute Granulocytes 7.5 H, Absolute Lymphocytes 1.7, Absolute Monocytes 0.8 H, Absolute Eosinophils 0.2, Absolute Basophils 0.1, PUBS MCHC 31.6 L 02/04/16 1523: Urine Color YEL, Urine Clarity HAZY H, Urine pH 6.5, Ur Specific [place] 1.010, Urine Protein TRACE H, Urine Ketones NEG, Urine Nitrite POS H, Urine Bilirubin NEG, Urine Urobilinogen 0.2, Ur Leukocyte Esterase LARGE H, Ur Microscopic SEDIMENT EXAMINED, Urine RBC 1-3, Urine WBC > 75 H, Urine Hemoglobin SMALL H, Urine Glucose NEG Microbiology 02/03 1523 URINE ROUT: Urine Culture - RECD Orders Radiology Findings: BLE DOPPLER US (02/03): Normal triplex scan without evidence of deep venous thrombosis involving the bilateral lower extremities. ABDOMINAL AORTA US (02/03): Limited exam secondary to overlying bowel gas. The proximal segment of the abdominal aorta is obscured by overlying bowel gas. The distal segment of the abdominal aorta is aneurysmally dilated and is visualized measuring 3.9 x 4.5 cm in AP and transverse dimensions respectively, not significantly changed in caliber relative to a prior contrast enhanced CT of the abdomen and pelvis dating back to 01/30/2015 in which it measured 4.3 x 4.4 cm in similar dimensions. Differences in measurements between the aneurysm sac are likely secondary to differences in technique. Assessment/Plan Assessment: 75 y/o M with PMHx of prostate cancer 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 #ABLA 2/2 GI Bleed: S/p transfusion of 2 units of pRBCs with improvement of Hgb to 8.1 this morning. 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 * Will check CBC this evening and tomorrow morning. * Continue Protonix 40 mg IV Q12H. * Monitor H/H and transfuse as needed to keep Hgb > 8 in the setting of CAD. * If H/H stable and patient is without further episodes of GI bleeding, will discharge home tomorrow. * Prilosec 20 mg PO QD added to discharge medications. #CAD: S/p stent placement x 2. EKG with NSR and no ST-T wave abnormalities. Mild elevation in troponin to 0.1, but troponin curve remains flat. Per Cardiology, this most likely represents myocardial ischemia although ACS is unlikely. * Continuous telemetry monitoring. * Resume home aspirin 81 mg PO QD and atorvastatin 80 mg PO QD. * Nitroglycerin patch at 0.2 mg/hr started. #Infrarenal AAA: History of infrarenal AAA with CT Abdomen/Pelvis in January 2015 that had shown increase in size from 4.2 cm to 4.5 cm. Aorta US this admission showing that AAA has remained stable in size since January 2015. * Metoprolol tartrate 12.5 mg PO BID started to reduce rate of growth of AAA. * Metoprolol succinate 25 mg PO QD added to discharge medications. #Elevated d-dimer: D-dimer slightly elevated at 343 concerning for thrombosis. BLE Doppler US with no evidence of DVT. * NTD. Diet: NPO DVT PPx: ALPs CODE: FULL Problem List: 1. Acute blood loss anemia 2. Duodenitis determined by biopsy 3. Dieulafoy lesion of stomach 4. CAD (coronary artery disease) 5. Aneurysm of infrarenal abdominal aorta Pain Ratin Pain Location: N/A Pain Goal: Remain pain free Pain Plan: Tylenol 650 mg PO Q4H PRN for mild pain (scale 1-3) Tomorrow's Labs & Rationales: CBC to monitor H/H in the setting of anemia Discharge Plan Discharge Disposition: home Anticipated Discharge (Day): tomorrow VITOR POWELL MD 02/05/16 1630: Attending MD Review Statement Attending Statement Attending MD Statement: examined this patient, discuss w/resident/PA/LOOM OPERATOR, agreed w/resident/PA/LOOM OPERATOR, reviewed EMR data (avail) Attending Assessment/Plan: 75M PMH prostate cancer s/p radiotherapy 10+ years ago c/b rectrourethral fistula s/p prostatectomy, cystectomy and ileal conduit, also complicated by rectocutaneous fistula s/p diverting colostomy, CAD s/p stent x2 1 year ago, history of upper and lower GI bleed, paroxysmal atrial fibrillation, active smoker, chronic diastolic CHF, AAA 4.5cm, presenting with weakness, fatigue, lightheadedness and melanotic stools in the setting of upper GI bleed. Received 2 units pRBC on admission, Hgb now stable at 8.1 Underwent EGD on 02/04 which found gastric lesion that was cauterized. Patient feels well after procedure and is taking PO well. Stable vitals, no BM after EGD so far. Plan - Continue to monitor, may discontinue telemetry - Follow GI recommendations - Continue PPI - May continue ASA - Continue home medications - Recheck Hgb tonight and tomorrow morning - If Hgb stable tomorrow morning and patient has no further episodes of GI bleeding may be discharged home with outpatient follow up
--- NOTE | 2016-02-05 11:37 | Patient Discharge Instructions ---
Discharge Instructions General Discharge Information You were seen/treated for: Acute blood loss anemia Upper GI bleed You had these procedures: EGD with cautery (02/05/16) Watch for these problems: Black or tarry bowel movements Blood in your stool or vomit Abdominal pain, nausea or vomiting Chest pain or shortness of breath Weakness, dizziness or confusion Special Instructions: Please see your primary care physician within one week of discharge. Please follow up with your software engineering supervisor and financial systems administrator within two weeks of discharge. Diet Recommended Diet: Heart Healthy Activity Full Activity/No Limits: Yes Acute Coronary Syndrome Inclusion Criteria At DC or during hospital stay patient has or had the following: ACS DIAGNOSIS No Discharge Core Measures Meds if any: Prescribed or Continued at Discharge Meds if any: NOT Prescribed or Continued at Discharge Congestive Heart Failure Inclusion Criteria At DC or during hospital stay patient has or had the following: CHF DIAGNOSIS No Discharge Core Measures Meds if any: Prescribed or Continued at Discharge Meds if any: NOT Prescribed or Continued at Discharge Cerebrovascular accident Inclusion Criteria At DC or during hospital stay patient has or had the following: CVA/TIA Diagnosis No Discharge Core Measures Meds if any: Prescribed or Continued at Discharge Meds if any: NOT Prescribed or Continued at Discharge Venous thromboembolism Inclusion Criteria VTE Diagnosis No VTE Type NONE VTE Confirmed by (Test) NONE Discharge Core Measures - Per Current guidelines, there needs to be overlap - treatment for the first 5 days of Warfarin therapy. - If discharged on Warfarin prior to 5 days of - overlap therapy, the patient will need to be - assessed for post discharge needs including - *Post discharge parental anticoagulation - *Warfarin and/or parental anticoagulation education - *Follow up date to check INR post discharge At least 5 days overlap therapy as Inpatient No Meds if any: Prescribed or Continued at Discharge Note: Overlap Therapy is Warfarin and Anticoagulant Meds if any: NOT Prescribed or Continued at Discharge
--- NOTE | 2016-02-05 11:38 | Proc Note Endoscopy ---
Endoscopy Procedure Procedure Date: 02/05/16 Procedure Type: EGD with cautery Roofer: Blas Riley M.D. ASA Classification: III Indications: GI bleed Anemia Instrument: diagnostic gastroscope Meds Received: OSMANY Patient's Tolerance: good Complications: none Extent Reached: second part of duodenum Procedure: The patient signed informed consent, and was medicated. Hurricaine pharyngeal spray was administered. Pulse oximetry, blood pressure and cardiac monitoring were performed continuously throughout the procedure. The Olympus high- definition gastroscope was inserted into the mouth and advanced to the duodenum. Retroflexion was performed within the stomach to examine the cardia. Careful examination was performed. Findings: The esophagus had normal caliber and contour. The mucosa was intact throughout. There were no varices. The GE junction was normal. The stomach had normal distention and active peristalsis. The cardia was normal. The mucosa and folds were normal throughout. There was no blood within the gastric cavity. The pyloric channel was normal. Within the duodenal bulb were scattered raised erythema. There were no ulcers. The mucosa and folds of the duodenal sweep were normal. Careful search revealed a small raised vascular lesion, between folds in the proximal fundus. Using a gold probe, 20 W bipolar current was applied. There was initial bleeding. Further cautery successfully achieve hemostasis/ablation. The area was washed/watched carefully for several minutes without further bleeding. Impression: * Vascular lesion of fundus (probable Dieulafoy's malformation), cauterized * Duodenitis, mild Recommendations: * Check CBC tonight, AM * Maintain Hgb greater than 8 * Resume heart-healthy diet * May continue ASA given coronary stents * If stable, discharge over weekend
[2016-02-05] MEDS ORDERED: METOPROLOL SUCC25 M1 PO (15:16)
[2016-02-05] MEDS ORDERED: PRILOSEC OTC20 M1 PO (15:20)
--- NOTE | 2016-02-05 16:35 | Cons- Cardiology ---
General Information and HPI Consulting Request Date of Consult: 02/05/16 Requested By: VITOR POWELL MD History of Present Illness: Kermit is a 75 year old male with history of coronary artery disease s/p PCI with two stents placed about a year ago while home in [place]. He also carries a history of prostate cancer and is s/p a cystoprostatectomy. 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 He now has both a urostomy and colonostomy. A couple days ago this patient noted shortness of breath without orthopnea that became progressively worse and by yesterday he needed to be seen in the ER. He also reports a mild and nonradiating chest tightness, lightheadedness and weakness. He denies palpitations. This patient was discovered to be moderate to severely anemic. He has had a prior GI bleed. At present this patient feels back to normal. Allergies/Medications Allergies: Coded Allergies: NO KNOWN ALLERGIES (01/29/15) Home Med List: Amoxicillin/Clavulanate Potass (Amox-Clav 875-125 MG Tablet) 875 MG-125 MG TABLET 1 TAB PO BID INFECTION (Reported) Aspirin (Aspirin*) 81 MG TAB.CHEW 1 TAB PO DAILY SUPPLEMENT (Reported) Atorvastatin (Atorvastatin Calcium) 80 MG TAB 80 MG PO DAILY CHOLESTEROL ( Reported) Cyanocobalamin (Vitamin B-12) (B-12) 1,000 MCG TABLET 1 TAB PO DAILY SUPPLEMENT (Reported) Folic Acid 1 MG TABLET 1 TAB PO DAILY SUPPLEMENT (Reported) Metoprolol Succinate 25 MG TAB 1 TAB PO DAILY ABDOMINAL AORTIC ANEURYSM Omeprazole Magnesium (Prilosec Otc) 20 MG TABLET.DR 1 TAB PO DAILY STOMACH HEALTH Review of Systems Review of Systems: A twelve point review of systemsis unremarkable. Past History Travel History Traveled to [place] past 21 day No Medical History Blood Transfusion Hx: Yes Neurological: NONE EENT: [place] Cardiovascular: CAD (s/p stent x2), hypertension Respiratory: pneumonia Gastrointestinal: COLOSTOMY FISTULA REPAIRED Hepatic: NONE Renal: UROSTOMY BLADDER REMOVED PROSTATE REMOVED HAS CATH IN PENIS FOR DRA ROBLES Musculoskeletal: ARTHRITIS Psychiatric: NONE Endocrine: NONE Blood Disorders: NONE Cancer(s): prostate cancer Surgical History Surgical History: hernia repair-inguinal, urostomy colostomy rectocutaneous fistula fractured finger on left hand colostomy cystoprostatectomy Psychosocial History Where Do You Live? Home Who Do You Live With? spouse Services at Home: None Smoking Status: Current Everyday Smoker (< 1 PPD for ~50 years) ETOH Use: 2 glasses of scotch per day Illicit Drug Use: denies illicit drug use Functional Ability ADLs Independent: dressing, eating, toileting, bathing. Ambulation: independent IADLs Independent: shopping, housework, finances, food prep, telephone, transportation , medication admin. Employment History Employment: Retired Profession/Employer [employer] Exam & Diagnostic Data Vital Signs and I&O Vital Signs Date Time Temp Pulse Resp B/P Pulse O2 O2 Flow FiO2 Ox Delivery Rate 02/04 1550 97.2 64 18 116/70 02/04 1200 97.2 68 20 116/70 02/04 1000 98.7 67 20 118/56 02/04 0836 97.7 67 18 118/56 94 Room Air 02/04 0800 Room Air 02/04 0800 97.7 67 18 118/56 02/03 2300 97.8 80 18 128/48 95 Room Air 02/03 1841 90 02/03 1802 98.0 69 20 122/62 95 Room Air 02/03 1713 97.7 83 18 108/51 95 Room Air Intake & Output 02/04 1600 02/04 0800 02/04 0000 02/03 1600 02/03 0800 02/03 0000 Intake Total 1060 800 540 Output Total 950 800 551 Balance 110 0 -11 Intake, IV 820 800 240 Intake, Oral 240 0 300 Number 1 Bowel Movements Output, Stool 100 1 Output, Urine 850 800 550 Patient 175 lb 175 lb Weight Physical Exam: General: WD/WN male in NAD: alert and oriented x3 HEENT: NC/AT, PERRL, EOMI, clear oropharynx NecK: no JVD, no carotid bruit Heart: RRR 2/6 systolic murmur at the apex and LLSB Lungs: clear bilaterally Abdomen: soft, NT, +ve bowel sounds with right urostomy and left colonostomy Extremities: no edema Assessment/Plan Assessment/Plan * This patient experienced both shortness of breath and chest discomfort in the setting of moderate to severe anemia. These symptoms were accompanied by a small rise in troponin indicative of myocardial ischemia. Although I do not think he has an acute coronary syndrome characterized by a ruptured intracoronary plaque, I do think he has myocardial ischemia. I do not think that there is any advantage to risk stratification with a stress test. Since this patient is focused on going back to [place] I think it is reasonable to attempt medical therapy. If this fails to adequately address his angina then a cardiac catheterization should be pursued. Due to his GI bleed he may not tolerate Plavix/ Effient but he should be on an enteric coated aspirin at 81mg daily. I would not go up on his beta solitario which at home was Metoprolol 25mg daily since he has had prior issues with bradycardia. He should be on a statin. Begin a NTG patch at 0.2mg/hr daily. Consult Acknowledgment - Thank you for your consult request.
[2016-02-05 20:30] LABS: ABSOLUTE BASOPHIL COUNT 0.1 /CUMM (0.0-0.2); ABSOLUTE EOSINOPHIL COUNT 0.3 /CUMM (0.0-0.7); ABSOLUTE GRANULOCYTE CT 7.3 /CUMM (1.4-6.5); ABSOLUTE LYMPH COUNT 1.4 /CUMM (1.2-3.4); ABSOLUTE MONOCYTE COUNT 0.7 /CUMM (0.10-0.60); BASOPHIL % 0.8 % (0.0-2.0); EOSINOPHIL % 3.2 % (0-5); GRANULOCYTE % 74.5 % (42.2-75.2); HEMATOCRIT 24.8 % (42-52); MEAN CORPUSCULAR HGB 28.6 PG (27.0-31.0); MEAN CORPUSCULAR HGB CONC 32.3 G/DL (33.0-37.0); MEAN CORPUSCULAR VOLUME 88.6 FL (80.0-94.0); MEAN PLATELET VOLUME 9.3 FL (7.4-10.4); PLATELET COUNT 203 /CUMM (130-400); RBC DISTRIBUTION WIDTH 16.7 % (11.5-14.5); WHITE BLOOD CELL COUNT 9.9 /CUMM (4.8-10.8)
[2016-02-06 08:00] VITALS: BP 130/60
[2016-02-06 08:07] LABS: ABSOLUTE BASOPHIL COUNT 0 /CUMM (0.0-0.2); ABSOLUTE EOSINOPHIL COUNT 0.3 /CUMM (0.0-0.7); ABSOLUTE GRANULOCYTE CT 8.7 /CUMM (1.4-6.5); ABSOLUTE LYMPH COUNT 1.1 /CUMM (1.2-3.4); ABSOLUTE MONOCYTE COUNT 0.7 /CUMM (0.10-0.60); BASOPHIL % 0.3 % (0.0-2.0); EOSINOPHIL % 3.1 % (0-5); GRANULOCYTE % 79.9 % (42.2-75.2); HEMATOCRIT 23.9 % (42-52); MEAN CORPUSCULAR HGB 28.7 PG (27.0-31.0); MEAN CORPUSCULAR HGB CONC 32.7 G/DL (33.0-37.0); MEAN CORPUSCULAR VOLUME 87.8 FL (80.0-94.0); PLATELET COUNT 189 /CUMM (130-400); RED BLOOD CELL CT 2.72 /CUMM (4.70-6.10); WHITE BLOOD CELL COUNT 10.9 /CUMM (4.8-10.8)
--- NOTE | 2016-02-06 08:15 | PN- Housestaff ---
OCTAVIO SANDERSON,[facility] 02/06/16 0814: Subjective Follow-up For: Acute GIB Tele-Events Since Last Visit: sb sr 58-70 Bradycardia 40's while Sleeping Subjective: Mr Reyes was seen and examined this morning. He is resting comfortably in bed. Patient had no acute issues overnight. Currently awaiting results his hemoglobin blood draw that was done this morning. The patient is eager to go home. Patient reports output in colostomy bag normal, denies any changes in frequency or caliber. Patient denies any fever, chills, nausea, vomiting. Review of Systems Constitutional: Reports: see HPI. Objective Last 24 Hrs of Vital Signs/I&O Vital Signs Date Time Temp Pulse Resp B/P Pulse O2 O2 Flow FiO2 Ox Delivery Rate 02/05 1731 65 02/05 1557 98.8 62 18 126/58 93 02/05 1400 97.7 65 20 114/60 02/05 1200 97.7 57 20 110/58 02/05 1000 97.6 63 20 1160/50 02/05 0945 84 130/60 02/05 0819 98.1 62 18 118/62 92 Room Air 02/05 0800 97.7 60 20 130/60 02/04 2300 98.0 65 18 122/56 94 Room Air 02/04 2055 61 122/58 Intake & Output 02/05 1600 02/05 0800 02/05 0000 Intake Total 144 225 0501 Output Total 1350 800 950 Balance -870 0 870 Intake, IV 800 1200 Intake, Oral 480 0 620 Number 1 1 Bowel Movements Output, Stool 200 Output, Urine 1350 800 750 Physical Exam General Appearance: Alert, Oriented X3, Cooperative Lymphatic: Axillary nl Cardiovascular: Normal S1, Normal S2, ?systolic Murmur Lungs: Clear to Auscultation Abdomen: Normal Bowel Sounds, Soft, No Tenderness, Colostomy Bag Neurological: Normal Speech Extremities: Edema 1+ Current Medications: Current Medications Sig/Stephanie Start time Last Medication Dose Route Stop Time Status Admin Acetaminophen 650 MG Q4P PRN 02/04 0545 AC 02/04 PO 0553 Aspirin 81 MG DAILY 02/04 1318 AC 02/05 PO 0945 Atorvastatin Calcium 80 MG 1700 02/05 1700 AC 02/05 PO 1630 Metoprolol Tartrate 12.5 MG BID 02/04 2200 AC 02/05 PO 0945 Nitroglycerin 0.2 MG DAILY 02/04 1911 DC 02/05 TOP 0945 Omeprazole 20 MG DAILY 02/05 0851 02/05 PO 45 Pantoprazole Sodium 40 MG Q12 02/04 1100 DC 02/04 IV 2053 Potassium Chloride 40 MEQ Q10H 02/03 161 DC 02/04 Dextrose/Water 1,000 ML IV 2053 Last 24 Hrs of Lab/Julian Results Last 24 Hrs of Labs/Mics: Laboratory Tests 02/06/16 0623: CBC w Diff NO MAN DIFF REQ, RBC 2.72 L, MCV 87.8, MCH 28.7, RDW 16.0 H, MPV 9.0, Gran % 79.9 H, Lymphocytes % 10.2 L, Monocytes % 6.5, Eosinophils % 3.1, Basophils % 0.3, Absolute Granulocytes 8.7 H, Absolute Lymphocytes 1.1 L, Absolute Monocytes 0.7 H, Absolute Eosinophils 0.3, Absolute Basophils 0, PUBS MCHC 32.7 L Assessment/Plan Assessment: 75 y/o M with PMHx of prostate cancer 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 Hemoglobin this am:7.8/23.9 Patient transfused one unit this am. Repeat CBC in AM, if Hgb > 8, consider patient discharge. #ABLA 2/2 GI Bleed: S/p transfusion of 2 units of pRBCs with improvement of Hgb to 8.1 this morning. 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 * Will check CBC this evening and tomorrow morning. * Continue Protonix 40 mg IV Q12H. * Monitor H/H and transfuse as needed to keep Hgb > 8 in the setting of CAD. * If H/H stable and patient is without further episodes of GI bleeding, will discharge home tomorrow. * Prilosec 20 mg PO QD added to discharge medications. #CAD: S/p stent placement x 2. EKG with NSR and no ST-T wave abnormalities. Mild elevation in troponin to 0.1, but troponin curve remains flat. Per Cardiology, this most likely represents myocardial ischemia although ACS is unlikely. * Continuous telemetry monitoring. * Resume home aspirin 81 mg PO QD and atorvastatin 80 mg PO QD. * Nitroglycerin patch at 0.2 mg/hr started. #Infrarenal AAA: History of infrarenal AAA with CT Abdomen/Pelvis in January 2015 that had shown increase in size from 4.2 cm to 4.5 cm. Aorta US this admission showing that AAA has remained stable in size since January 2015. * Metoprolol tartrate 12.5 mg PO BID started to reduce rate of growth of AAA. * Metoprolol succinate 25 mg PO QD added to discharge medications. #Elevated d-dimer: D-dimer slightly elevated at 343 concerning for thrombosis. BLE Doppler US with no evidence of DVT. * NTD. Diet: NPO DVT PPx: ALPs CODE: FULL Problem List: 1. Leukocytosis 2. Lower gastrointestinal bleeding 3. Rectocutaneous fistula 4. Rectal bleeding 5. Symptomatic anemia 6. Chest pain 7. GI bleed 8. Acute blood loss anemia 9. Aneurysm of infrarenal abdominal aorta 10. CAD (coronary artery disease) 11. Melena 12. Atrial fibrillation 13. Duodenitis determined by biopsy 14. Dieulafoy lesion of stomach Pain Ratin Pain Location: No Pain reported Pain Goal: Remain pain free Pain Plan: Tylenol 650 mg PO Q4H PRN for mild pain (scale 1-3) Tomorrow's Labs & Rationales: CBC - Monitor H/H MARYCARMEN BARRIOS MD 02/06/16 0851: Attending MD Review Statement Attending Statement Attending MD Statement: examined this patient, discuss w/resident/PA/TUGBOAT ENGINEER, agreed w/resident/PA/TUGBOAT ENGINEER, reviewed EMR data (avail), discussed with nursing Attending Assessment/Plan: Pt feels well and is eager to go home. He is planning to go to [place] on either Monday or Monday. He is a 75-year-old male with a past medical history of prostate CA, CAD with a stent more than a year ago, and a AAA. He is here with symptomatic anemia and a GI bleed and was found to have a suspected Dieulafoy's lesion that was cauterized. His hemoglobin has stayed stable, it was 8 last night and 8 yesterday morning and we're pending today's hemoglobin. He is eating and is without any chest pain or symptoms. If His hemoglobin is stable he can leave today. He will leave on the enteric-coated aspirin with metoprolol 25 mg and close outpatient follow-up with his mortgage closing clerk in [place].
[2016-02-06 08:19] VITALS: BP 118/62
--- NOTE | 2016-02-06 09:50 | PN- Gastroenterology ---
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 Elevated BUN and historical melena. The patient apparently had multiple EGD and colonoscopy in [place]. 02/05/2016: EGD to D2 with cautery per Dr. Gabe Riley- Vascular lesion of fundus (probable Dieulafoy' s malformation), cauterized. Mild duodenitis. The patient is hemodynamically stable, ambulating, and currently asymptomatic, without any chest pain, shortness breath, or abdominal pain. There is no hematemesis. He is brown stool in the colostomy, without melena or fresh blood. BUN is declining. Hemoglobin has been in the 8 range after 2 units PRBC. He is being maintained on Ecotrin 81 mg daily in view of the cardiac stents, without Plavix per cardiology. IV PPI have been switched to Omeprazole 20 mg po today. SUGGEST: Await 02/06/2016: Hgb. *If this remains in the 8 range, okay from GI perspective for discharge today on Omeprazole 20 g daily, along with Ecotrin 81 mg daily. Other medications as per medicine/cardiology. The patient will be going back to [place] next week, where he lives and will have a CBC repeated there. ADDENDUM: 02/06/2016: Hgb 7.8- will keep overnight for an additional 1 u PRBC (ASHD) The above was discussed with the patient & with Dr. Santiago Shi. Repeat CBC post- transfusion. Problem List: 1. Symptomatic anemia 2. GI bleed 3. Dieulafoy lesion of stomach 4. Duodenitis determined by biopsy Subjective Subjective: Patient seen and examined. Chart reviewed. The patient is being seen in GI coverage for Dr. Ozzie Riley. The patient is ambulating. He tolerated solids po. He denies any chest pain, shortness of breath, abdominal pain, nausea, vomiting, reflux, hematemesis, or early satiety. Digital exam of his colostomy shows brown stool, without any fresh blood or melena. He is feeling much better after transfusions and wants to go home. He is going back to [place] next week. He received 2 units PRBC on 02/04/2016. He is hemodynamically stable and afebrile. Dr. Owusu's cardiology note appreciated, and Ecotrin 81 mg daily was advised in view of coronary stents 1 year prior, but to defer Plavix. IV Protonix 40 mg BID was switched to Omeprazole 20 mg po daily on 02/06/2016. BUN has declined. Repeat Hgb pendinng (02/05/2016: Hgb 8.0). 02/04/2016: peak troponin .11. 02/05/2016: troponin .09. Review of Systems: Review of Systems Constitutional: Reports: weakness- *resolved. Denies: chills, fever. EENTM: Reports: no symptoms. Cardiovascular: Reports: chest pain- *resolved. Denies: edema, palpitations, syncope. Respiratory: Reports: cough, short of breath- *resolved. Denies: sputum production. GI: Reports: melena- *resolved (currently brown stool in colostomy). Denies: abdominal pain, constipation, diarrhea, nausea, vomiting. Genitourinary: Denies: dysuria, frequency, hematuria. Musculoskeletal: Reports: no symptoms. Skin: Reports: no symptoms. Neurological/Psychological: Reports: no symptoms. Hematologic/Endocrine: Denies: bruising or bleeding. Immunologic/Allergic: Reports: no symptoms. All Other Systems: Reviewed and Negative Objective Vital Signs and I&Os Vital Signs Date Time Temp Pulse Resp B/P Pulse O2 O2 Flow FiO2 Ox Delivery Rate 02/05 0819 98.1 62 18 118/62 92 Room Air 02/04 2300 98.0 65 18 122/56 94 Room Air 02/04 2055 61 122/58 02/04 1800 97.2 69 18 116/70 02/04 1644 97.4 63 18 102/52 96 02/04 1600 97.2 64 18 116/70 02/04 1550 97.2 64 18 116/70 02/04 1200 97.2 68 20 116/70 02/04 1000 98.7 67 20 118/56 Intake & Output 02/05 1600 02/05 0400 02/04 1600 02/04 0400 02/03 1600 02/03 0400 Intake Total 800 1820 1860 540 Output Total 801 591 2920 551 Balance 0 870 110 -11 Intake, IV 800 1200 1620 240 Intake, Oral 0 620 240 300 Number 1 1 Bowel Movements Output, Stool 200 100 1 Output, Urine 270 640 0443 550 Patient 175 lb 175 lb Weight Physical Exam: Well-developed, well-nourished male in no apparent distress. Sclera anicteric. Conjunctiva pink. Oropharynx clear. There is no adenopathy, thyromegaly, or JVD. No peripheral stigmata of inflammatory bowel disease or chronic liver disease on exam. No CVA tenderness. Lungs: clear to A&P. Heart exam: regular rate rhythm, S1 and S2 with soft systolic murmur. Abdominal exam: normal bowel sounds, soft belly, nontender without guarding or rebound. No mass except for ? tiny parastomal hernia. Urostomy on the right, colostomy on the left. No organomegaly. No fluid shift. No pulsatile mass. No epigastric bruit. Digital stomal exam by myself: brown stool, without melena or red blood, Extremities: without C, C, or E. No palpable cords. Distal pulses 1+ bilaterally. DTRs 1+ bilaterally. Alert and oriented x 3. Current Medications: Current Medications Sig/Stephanie Start time Last Medication Dose Route Stop Time Status Admin Acetaminophen 650 MG Q4P PRN 02/04 0545 02/04 PO 0553 Aspirin 81 MG DAILY 02/04 1318 02/04 PO 1446 Atorvastatin Calcium 80 MG 1700 02/05 1700 AC PO Benzocaine 1 CRICKET .STK-MED ONE 02/04 1122 [place] TOP 02/04 1123 Lidocaine 2 CRICKET .STK-MED ONE 02/04 1122 [facility] 02/04 1123 Metoprolol Tartrate 12.5 MG BID 02/04 2200 AC PO Nitroglycerin 0.2 MG DAILY 02/04 1911 02/04 TOP 2055 Omeprazole 20 MG DAILY 02/05 0851 AC PO Pantoprazole Sodium 40 MG Q12 02/04 1100 DC 02/04 IV 2053 Pantoprazole Sodium 40 MG Q12 02/03 1516 DC 02/03 Sodium Chloride 100 ML IV 2130 Potassium Chloride 40 MEQ Q10H 02/03 1615 [place] 02/04 Dextrose/Water 1,000 ML IV 2053 Results Pertinent Lab Results: Laboratory Tests 02/05 02/04 0623 1800 Hematology CBC w Diff Pending NO MAN DIFF REQ WBC (4.8 - 10.8 /CUMM) Pending 9.9 RBC (4.70 - 6.10 /CUMM) Pending 2.80 L Hgb (14.0 - 18.0 G/DL) Pending 8.0 L Hct (42 - 52 %) Pending 24.8 L MCV (80.0 - 94.0 FL) Pending 88.6 MCH (27.0 - 31.0 PG) Pending 28.6 RDW (11.5 - 14.5 %) Pending 16.7 H Plt Count (130 - 400 /CUMM) Pending 203 MPV (7.4 - 10.4 FL) Pending 9.3 Gran % (42.2 - 75.2 %) 74.5 Lymphocytes % (20.5 - 51.1 %) 14.2 L Monocytes % (1.7 - 9.3 %) 7.3 Eosinophils % (0 - 5 %) 3.2 Basophils % (0.0 - 2.0 %) 0.8 Absolute Granulocytes (1.4 - 6.5 /CUMM) 7.3 H Absolute Lymphocytes (1.2 - 3.4 /CUMM) 1.4 Absolute Monocytes (0.10 - 0.60 /CUMM) 0.7 H Absolute Eosinophils (0.0 - 0.7 /CUMM) 0.3 Absolute Basophils (0.0 - 0.2 /CUMM) 0.1 PUBS MCHC (33.0 - 37.0 G/DL) Pending 32.3 L 02/04 02/04 0520 0140 Chemistry Sodium (137 - 145 mmol/L) 139 Potassium (3.5 - 5.1 mmol/L) 4.4 Chloride (98 - 107 mmol/L) 109 H Carbon Dioxide (22 - 30 mmol/L) 25 Anion Gap (5 - 16) 5 BUN (9 - 20 mg/dL) 31 H Creatinine (0.7 - 1.2 mg/dL) 0.9 Estimated GFR (>60 ml/min) > 60 BUN/Creatinine Ratio (7 - 25 %) 34.4 H Magnesium (1.6 - 2.3 mg/dL) 2.0 Troponin I (<0.11 ng/ml) 0.09 Hematology CBC w Diff NO MAN DIFF REQ NO MAN DIFF REQ WBC (4.8 - 10.8 /CUMM) 8.5 8.3 RBC (4.70 - 6.10 /CUMM) 2.88 L 2.77 L Hgb (14.0 - 18.0 G/DL) 8.1 L 8.1 L Hct (42 - 52 %) 25.6 L 24.2 L MCV (80.0 - 94.0 FL) 89.0 87.5 MCH (27.0 - 31.0 PG) 28.2 29.4 RDW (11.5 - 14.5 %) 15.9 H 16.1 H Plt Count (130 - 400 /CUMM) 197 206 MPV (7.4 - 10.4 FL) 9.1 9.6 Gran % (42.2 - 75.2 %) 72.3 69.2 Lymphocytes % (20.5 - 51.1 %) 14.8 L 18.2 L Monocytes % (1.7 - 9.3 %) 8.4 8.8 Eosinophils % (0 - 5 %) 3.6 3.1 Basophils % (0.0 - 2.0 %) 0.9 0.7 Absolute Granulocytes (1.4 - 6.5 /CUMM) 6.1 5.7 Absolute Lymphocytes (1.2 - 3.4 /CUMM) 1.3 1.5 Absolute Monocytes (0.10 - 0.60 /CUMM) 0.7 H 0.7 H Absolute Eosinophils (0.0 - 0.7 /CUMM) 0.3 0.3 Absolute Basophils (0.0 - 0.2 /CUMM) 0.1 0.1 PUBS MCHC (33.0 - 37.0 G/DL) 31.7 L 33.5 02/03 02/03 1840 1523 Chemistry Phosphorus (2.5 - 4.5 mg/dL) 2.8 Magnesium (1.6 - 2.3 mg/dL) 1.9 Troponin I (<0.11 ng/ml) 0.11 *H Hematology CBC w Diff NO MAN DIFF REQ WBC (4.8 - 10.8 /CUMM) 10.3 RBC (4.70 - 6.10 /CUMM) 2.81 L Hgb (14.0 - 18.0 G/DL) 7.8 L Hct (42 - 52 %) 24.8 L MCV (80.0 - 94.0 FL) 88.0 MCH (27.0 - 31.0 PG) 27.8 RDW (11.5 - 14.5 %) 16.5 H Plt Count (130 - 400 /CUMM) 239 MPV (7.4 - 10.4 FL) 9.0 Gran % (42.2 - 75.2 %) 72.6 Lymphocytes % (20.5 - 51.1 %) 16.6 L Monocytes % (1.7 - 9.3 %) 7.9 Eosinophils % (0 - 5 %) 2.1 Basophils % (0.0 - 2.0 %) 0.8 Absolute Granulocytes (1.4 - 6.5 /CUMM) 7.5 H Absolute Lymphocytes (1.2 - 3.4 /CUMM) 1.7 Absolute Monocytes (0.10 - 0.60 /CUMM) 0.8 H Absolute Eosinophils (0.0 - 0.7 /CUMM) 0.2 Absolute Basophils (0.0 - 0.2 /CUMM) 0.1 PUBS MCHC (33.0 - 37.0 G/DL) 31.6 L Urines Urine Color (YEL,AMB,STR) YEL Urine Clarity (CLEAR) HAZY H Urine pH (5.0 - 8.0) 6.5 Ur Specific [place] (1.001 - 1.035) 1.010 Urine Protein (NEG,<30 MG/DL) TRACE H Urine Ketones (NEG) NEG Urine Nitrite (NEG) POS H Urine Bilirubin (NEG) NEG Urine Urobilinogen (0.1 - 1.0 EU/dl) 0.2 Ur Leukocyte Esterase (NEG) LARGE H Ur Microscopic SEDIMENT EXAMINED Urine RBC (0 - 5 /HPF) 1-3 Urine WBC (0 - 2 /HPF) > 75 H Urine Hemoglobin (NEG) SMALL H Urine Glucose (N MG/DL) NEG 02/03 02/03 1202 1159 Chemistry Sodium (137 - 145 mmol/L) 139 Potassium (3.5 - 5.1 mmol/L) 4.8 Chloride (98 - 107 mmol/L) 106 Carbon Dioxide (22 - 30 mmol/L) 24 Anion Gap (5 - 16) 9 BUN (9 - 20 mg/dL) 51 H Creatinine (0.7 - 1.2 mg/dL) 0.8 Estimated GFR (>60 ml/min) > 60 BUN/Creatinine Ratio (7 - 25 %) 63.8 H Glucose (65 - 99 mg/dL) 230 H Calcium (8.4 - 10.2 mg/dL) 8.8 Total Bilirubin (0.2 - 1.3 mg/dL) 0.4 AST (17 - 59 U/L) 19 ALT (21 - 72 U/L) 40 Alkaline Phosphatase (< 127 U/L) 57 Troponin I (<0.11 ng/ml) 0.06 Total Protein (6.3 - 8.2 g/dL) 6.0 L Albumin (3.5 - 5.0 g/dL) 3.1 L Globulin (1.9 - 4.2 gm/dL) 2.9 Albumin/Globulin Ratio (1.1 - 2.2 %) 1.1 Coagulation PT (9.4 - 12.5 SEC) 11.5 INR (0.90 - 1.17) 1.10 D-Dimer (70 - 232 ng/ml) Cancelled 343 H Hematology CBC w Diff NO MAN DIFF REQ WBC (4.8 - 10.8 /CUMM) 12.3 H RBC (4.70 - 6.10 /CUMM) 2.65 L Hgb (14.0 - 18.0 G/DL) 7.4 *L Hct (42 - 52 %) 23.3 L MCV (80.0 - 94.0 FL) 87.9 MCH (27.0 - 31.0 PG) 27.9 RDW (11.5 - 14.5 %) 17.4 H Plt Count (130 - 400 /CUMM) 269 MPV (7.4 - 10.4 FL) 9.5 Gran % (42.2 - 75.2 %) 81.6 H Lymphocytes % (20.5 - 51.1 %) 10.2 L Monocytes % (1.7 - 9.3 %) 6.3 Eosinophils % (0 - 5 %) 1.2 Basophils % (0.0 - 2.0 %) 0.7 Absolute Granulocytes (1.4 - 6.5 /CUMM) 10.1 H Absolute Lymphocytes (1.2 - 3.4 /CUMM) 1.3 Absolute Monocytes (0.10 - 0.60 /CUMM) 0.8 H Absolute Eosinophils (0.0 - 0.7 /CUMM) 0.2 Absolute Basophils (0.0 - 0.2 /CUMM) 0.1 PUBS MCHC (33.0 - 37.0 G/DL) 31.7 L Imaging/Other Studies: 02/04/2016: US TRIPLEX LOWER EXTREMITY, BILATERAL- Normal triplex scan without evidence of deep venous thrombosis involving the bilateral lower extremities. 02/04/2016: US RETROPERITONEAL LIMITED (AORTA)- Limited exam secondary to overlying bowel gas. The proximal segment of the abdominal aorta is obscured by overlying bowel gas. The distal segment of the abdominal aorta is aneurysmally dilated and is visualized measuring 3.9 x 4.5 cm in AP and transverse dimensions respectively, not significantly changed in caliber relative to a prior contrast-enhanced CT of the abdomen and pelvis dating back to 01/30/2015 in which it measured 4.3 x 4.4 cm in similar dimensions. Differences in measurements between the aneurysm sac are likely secondary to differences in technique. 02/04/2016: XR PORTABLE CHEST- No acute cardiopulmonary pathology compared to 01/30/2015. Borderline cardiomegaly. No acute infiltrate, CHF, or pleural effusion. Osteopenia. Dextroscoliosis of TL-spine. 02/05/2016: EKG- NSR @ 68, LAE, borderline LAD, no ischemic changes. 02/05/2016: EGD to D2 with cautery per Dr. Gabe Riley- Vascular lesion of fundus (probable Dieulafoy's malformation), cauterized. Mild duodenitis.
[2016-02-06 10:00] VITALS: BP 1160/50
--- NOTE | 2016-02-06 11:44 | PN- Cardiology ---
Subjective Subjective: The patient reports that he is feeling well. No chest pain. No palpitations. No shortness of breath. He is currently receiving a transfusion. No lightheadedness or dizziness. No diaphoresis. Objective Vital Signs and I&Os Vital Signs Date Time Temp Pulse Resp B/P Pulse O2 O2 Flow FiO2 Ox Delivery Rate 02/05 0945 84 130/60 02/05 0819 98.1 62 18 118/62 92 Room Air 02/04 2300 98.0 65 18 122/56 94 Room Air 02/04 2055 61 122/58 02/04 1800 97.2 69 18 116/70 02/04 1644 97.4 63 18 102/52 96 02/04 1600 97.2 64 18 116/70 02/04 1550 97.2 64 18 11670 02/04 1200 97.2 68 20 /70 Intake & Output 02/05 1600 02/05 0800 02/05 0000 02/04 1600 02/04 0800 02/04 0000 Intake Total 800 1820 1060 800 540 Output Total 800 950 950 800 551 Balance 0 870 110 0 -11 Intake, IV 800 1200 820 800 240 Intake, Oral 0 620 240 0 300 Number 1 1 Bowel Movements Output, Stool 200 100 1 Output, Urine 800 750 850 800 550 Patient 175 lb Weight Physical Exam: Gen: NAD HEENT: normal Lungs: clear to auscultation, normal resp. effort Heart: RRR, S1, S2, 2/6 systolic murmur Abdomen: Soft, nontender, no masses Extremities: No clubbing, cyanosis, or edema. Neuro: Alert and oriented x 3, cranial nerves intact Current Medications: Current Medications Sig/Stephanie Start time Last Medication Dose Route Stop Time Status Admin Acetaminophen 650 MG Q4P PRN 02/04 0545 AC 02/04 PO 0553 Aspirin 81 MG DAILY 02/04 1318 AC 02/05 PO 0945 Atorvastatin Calcium 80 MG 1700 02/05 1700 AC PO Metoprolol Tartrate 12.5 MG BID 02/04 2200 AC 02/05 PO 0945 Nitroglycerin 0.2 MG DAILY 02/04 1911 DC 02/05 TOP 0945 Omeprazole 20 MG DAILY AC 02/05 0851 AC 02/05 PO 0945 Pantoprazole Sodium 40 MG Q12 02/04 1100 DC 02/04 IV 2054 Potassium Chloride 40 MEQ Q10H 02/03 1615 DC 02/04 Dextrose/Water 1,000 ML IV 2053 Results Last 48 Hrs of Labs/Mics: Laboratory Tests 02/06/16 0623: CBC w Diff NO MAN DIFF REQ, RBC 2.72 L, MCV 87.8, MCH 28.7, RDW 16.0 H, MPV 9.0, Gran % 79.9 H, Lymphocytes % 10.2 L, Monocytes % 6.5, Eosinophils % 3.1, Basophils % 0.3, Absolute Granulocytes 8.7 H, Absolute Lymphocytes 1.1 L, Absolute Monocytes 0.7 H, Absolute Eosinophils 0.3, Absolute Basophils 0, PUBS MCHC 32.7 L 02/05/16 1800: CBC w Diff NO MAN DIFF REQ, RBC 2.80 L, MCV 88.6, MCH 28.6, RDW 16.7 H, MPV 9.3, Gran % 74.5, Lymphocytes % 14.2 L, Monocytes % 7.3, Eosinophils % 3.2, Basophils % 0.8, Absolute Granulocytes 7.3 H, Absolute Lymphocytes 1.4, Absolute Monocytes 0.7 H, Absolute Eosinophils 0.3, Absolute Basophils 0.1, PUBS MCHC 32.3 L 02/05/16 0520: Anion Gap 5, Estimated GFR > 60, BUN/Creatinine Ratio 34.4 H, Magnesium 2.0, CBC w Diff NO MAN DIFF REQ, RBC 2.88 L, MCV 89.0, MCH 28.2, RDW 15.9 H, MPV 9.1, Gran % 72.3, Lymphocytes % 14.8 L, Monocytes % 8.4, Eosinophils % 3.6, Basophils % 0.9, Absolute Granulocytes 6.1, Absolute Lymphocytes 1.3, Absolute Monocytes 0.7 H, Absolute Eosinophils 0.3, Absolute Basophils 0.1, PUBS MCHC 31.7 L 02/05/16 0140: Troponin I 0.09, CBC w Diff NO MAN DIFF REQ, RBC 2.77 L, MCV 87.5, MCH 29.4, RDW 16.1 H, MPV 9.6, Gran % 69.2, Lymphocytes % 18.2 L, Monocytes % 8.8, Eosinophils % 3.1, Basophils % 0.7, Absolute Granulocytes 5.7, Absolute Lymphocytes 1.5, Absolute Monocytes 0.7 H, Absolute Eosinophils 0.3, Absolute Basophils 0.1, PUBS MCHC 33.5 02/04/16 1840: Phosphorus 2.8, Magnesium 1.9, Troponin I 0.11 *H, CBC w Diff NO MAN DIFF REQ, RBC 2.81 L, MCV 88.0, MCH 27.8, RDW 16.5 H, MPV 9.0, Gran % 72.6, Lymphocytes % 16.6 L, Monocytes % 7.9, Eosinophils % 2.1, Basophils % 0.8, Absolute Granulocytes 7.5 H, Absolute Lymphocytes 1.7, Absolute Monocytes 0.8 H, Absolute Eosinophils 0.2, Absolute Basophils 0.1, PUBS MCHC 31.6 L 02/04/16 1523: Urine Color YEL, Urine Clarity HAZY H, Urine pH 6.5, Ur Specific [place] 1.010, Urine Protein TRACE H, Urine Ketones NEG, Urine Nitrite POS H, Urine Bilirubin NEG, Urine Urobilinogen 0.2, Ur Leukocyte Esterase LARGE H, Ur Microscopic SEDIMENT EXAMINED, Urine RBC 1-3, Urine WBC > 75 H, Urine Hemoglobin SMALL H, Urine Glucose NEG 02/04/16 1202: D-Dimer Cancelled 02/04/16 1159: Anion Gap 9, Estimated GFR > 60, BUN/Creatinine Ratio 63.8 H, Glucose 230 H, Calcium 8.8, Total Bilirubin 0.4, AST 19, ALT 40, Alkaline Phosphatase 57, Troponin I 0.06, Total Protein 6.0 L, Albumin 3.1 L, Globulin 2.9, Albumin/ Globulin Ratio 1.1, PT 11.5, INR 1.10, D-Dimer 343 H, CBC w Diff NO MAN DIFF REQ, RBC 2.65 L, MCV 87.9, MCH 27.9, RDW 17.4 H, MPV 9.5, Gran % 81.6 H, Lymphocytes % 10.2 L, Monocytes % 6.3, Eosinophils % 1.2, Basophils % 0.7, Absolute Granulocytes 10.1 H, Absolute Lymphocytes 1.3, Absolute Monocytes 0.8 H, Absolute Eosinophils 0.2, Absolute Basophils 0.1, PUBS MCHC 31.7 L Assessment/Plan Assessment/Plan 1. Known CAD, with minimal troponin elevation. Likely demand ischemia 2. Anemia with GI bleed 3. 4.5 cm AAA Plan: * Continue low-dose aspirin * Discontinue nitroglycerin paste * Continue metoprolol * Follow up with his cork sorter in [place] as soon as possible. * Return to the emergency department for chest pain or other new cardiac symptoms. Continue telemetry? Yes
[2016-02-06 12:00] VITALS: BP 110/58
[2016-02-06 14:00] VITALS: BP 114/60
[2016-02-06 15:57] VITALS: BP 126/58
[2016-02-07 01:00] VITALS: BP 118/52
[2016-02-07 08:00] VITALS: BP 102/50
[2016-02-07 08:10] VITALS: BP 102/50
--- NOTE | 2016-02-07 08:27 | PN- Housestaff ---
KRISTY STRONG 02/07/16 0826: Subjective Follow-up For: Acute GIB Complaints: pain scale (0-10) Tele-Events Since Last Visit: sr 58-70 Subjective: Patient was seen and examined this morning. He is alert, awake and oriented to time place and person. No acute events monitored overnight. He denied any fever, chills, shortness of breath, nausea, vomiting or abdominal pain. No change in bladder or bowel habits. He is eager to go home this morning. Waiting for the hemoglobin this morning. If hemoglobin greater than 8 he is safe to go home. Vitals were stable. Afebrile, heart rate 65, respiratory rate 18, blood pressure 102/58, saturating at 92% on room air. Review of Systems Constitutional: Denies: see HPI. Objective Last 24 Hrs of Vital Signs/I&O Vital Signs Date Time Temp Pulse Resp B/P Pulse O2 O2 Flow FiO2 Ox Delivery Rate 02/06 1000 98.1 65 18 102/50 02/06 0901 65 102/50 02/06 0810 98.1 65 18 102/50 92 Room Air 02/06 0800 Room Air 02/06 0800 98.1 65 18 102/50 02/06 0100 98.3 53 18 118/52 93 Room Air 02/05 2138 67 130/60 02/05 1731 65 02/05 1557 98.8 62 18 126/58 93 02/05 1400 97.7 65 20 114/60 02/05 1200 97.7 57 20 110/58 Intake & Output 02/06 1600 02/06 0800 02/06 0000 Intake Total 200 200 Output Total 650 950 Balance -450 -750 Intake, Oral 200 200 Output, Urine 650 950 Physical Exam General Appearance: Alert, Oriented X3, Cooperative, No Acute Distress Skin: No Breakdown, No Significant Lesion HEENT: Atraumatic, Mucous Membr. moist/pink Neck: Supple, No JVD Lymphatic: Cervical nl Cardiovascular: Normal S1, Normal S2 Lungs: Normal Air Movement Abdomen: Normal Bowel Sounds, Soft, No Tenderness Extremities: No Clubbing, No Cyanosis, No Edema Vascular: Normal Pulses Current Medications: Current Medications Sig/Stephanie Start time Last Medication Dose Route Stop Time Status Admin Acetaminophen 650 MG Q4P PRN 02/04 0545 DCD 02/04 PO 0553 Aspirin 81 MG DAILY 02/04 1318 DCD 02/06 PO 0901 Atorvastatin Calcium 80 MG 1700 02/05 1700 DCD 02/05 PO 1630 Metoprolol Tartrate 12.5 MG BID 02/04 2200 DCD 02/06 PO 0901 Omeprazole 20 MG DAILY AC 02/05 0851 DCD 02/06 PO 0615 Last 24 Hrs of Lab/Julian Results Last 24 Hrs of Labs/Mics: Laboratory Tests 02/07/16 0625: CBC w Diff NO MAN DIFF REQ, RBC 3.01 L, MCV 89.1, MCH 29.4, RDW 16.3 H, MPV 9.3, Gran % 76.5 H, Lymphocytes % 9.8 L, Monocytes % 11.1 H, Eosinophils % 2.4, Basophils % 0.2, Absolute Granulocytes 7.3 H, Absolute Lymphocytes 0.9 L, Absolute Monocytes 1.1 H, Absolute Eosinophils 0.2, Absolute Basophils 0, PUBS MCHC 33.0 Assessment/Plan Assessment: 75 y/o M with PMHx of prostate cancer 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 Hemoglobin this am: 8.8 and 26.8-safe to discharge. Patient was transfused with one unit yesterday. #ABLA 2/2 GI Bleed: S/p transfusion of 3 units of pRBCs with improvement of Hgb to 8.8 this morning. 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 * Continue Protonix 40 mg IV Q12H. * Monitor H/H and transfuse as needed to keep Hgb > 8 in the setting of CAD. * If H/H stable and patient is without further episodes of GI bleeding, will discharge home today * Prilosec 20 mg PO QD added to discharge medications. #CAD: S/p stent placement x 2. EKG with NSR and no ST-T wave abnormalities. Mild elevation in troponin to 0.1, but troponin curve remains flat. Per Cardiology, this most likely represents myocardial ischemia although ACS is unlikely. * Continuous telemetry monitoring. * Resume home aspirin 81 mg PO QD and atorvastatin 80 mg PO QD. * Nitroglycerin patch at 0.2 mg/hr started. #Infrarenal AAA: History of infrarenal AAA with CT Abdomen/Pelvis in January 2015 that had shown increase in size from 4.2 cm to 4.5 cm. Aorta US this admission showing that AAA has remained stable in size since January 2015. * Metoprolol tartrate 12.5 mg PO BID started to reduce rate of growth of AAA. * Metoprolol succinate 25 mg PO QD added to discharge medications. #Elevated d-dimer: D-dimer slightly elevated at 343 concerning for thrombosis. BLE Doppler US with no evidence of DVT. * NTD. DVT PPx: ALPs CODE: FULL Problem List: 1. Dieulafoy lesion of stomach 2. CAD (coronary artery disease) 3. Acute blood loss anemia 4. GI bleed Pain Ratin Pain Location: none Pain Goal: Remain pain free Pain Plan: none Tomorrow's Labs & Rationales: none MARYCARMEN BARRIOS MD 02/07/16 0834: Attending MD Review Statement Attending Statement Attending MD Statement: examined this patient, discuss w/resident/PA/FRENCH FOLDER, agreed w/resident/PA/FRENCH FOLDER, reviewed EMR data (avail), discussed with nursing Attending Assessment/Plan: Patient is very eager to leave today. He is upset that he had to stay yesterday. We kept him because his hemoglobin was 7.8. He had a Dieulafoy's lesion found on endoscopy that was cauterized and he has coronary artery disease. He got 1 more unit of blood transfused yesterday and if his hemoglobin is over 8, can leave today. He knows that he needs close outpatient follow-up, he leave on an entric coated aspirin and a PPI.
[2016-02-07 08:55] LABS: ABSOLUTE BASOPHIL COUNT 0 /CUMM (0.0-0.2); ABSOLUTE EOSINOPHIL COUNT 0.2 /CUMM (0.0-0.7); ABSOLUTE GRANULOCYTE CT 7.3 /CUMM (1.4-6.5); ABSOLUTE LYMPH COUNT 0.9 /CUMM (1.2-3.4); ABSOLUTE MONOCYTE COUNT 1.1 /CUMM (0.10-0.60); BASOPHIL % 0.2 % (0.0-2.0); EOSINOPHIL % 2.4 % (0-5); GRANULOCYTE % 76.5 % (42.2-75.2); HEMATOCRIT 26.8 % (42-52); MEAN CORPUSCULAR HGB 29.4 PG (27.0-31.0); MEAN CORPUSCULAR VOLUME 89.1 FL (80.0-94.0); MEAN PLATELET VOLUME 9.3 FL (7.4-10.4); PLATELET COUNT 180 /CUMM (130-400); RBC DISTRIBUTION WIDTH 16.3 % (11.5-14.5); RED BLOOD CELL CT 3.01 /CUMM (4.70-6.10); WHITE BLOOD CELL COUNT 9.5 /CUMM (4.8-10.8)
[2016-02-07 10:00] VITALS: BP 102/50
--- NOTE | 2016-02-07 13:33 | Discharge Summary ---
Visit Information Visit Dates Admission Date: 02/04/16 Discharge Date: 02/07/16 Hospital Course Course Attending Physician: VITOR POWELL MD Primary Care Physician: LÓPEZ SANDERSON,IMMANUEL Henderson Consulting Request: 1 Consulting Specialty: Gastroenterology Consulting Physician: Antony Riley MD Reason for Consult: GI bleed, anemia Consulting Request: 2 Consulting Specialty: Cardiology Consulting Physician: Hiram Owusu MD Hospital Course: Mr. Reyes is a 75 y/o M with PMHx of prostate cancer s/p radiation complicated by rectourethral fistula and rectocutaneous fistula s/p cystoprostatectomy, urostomy and diverting colostomy, CAD s/p PCI with stent x 2 , paroxysmal atrial fibrillation, HFpEF and infrarenal AAA who presented with weakness, lightheadedness and shortness of breath as well as tarry black stools. Of note, patient was hospitalized for multiple similar episodes in the past 6-8 months in his hometown of [place], the last one in September 2015, during which he was found to be anemic and with melenic stools, subsequently receiving blood transfusions. Per patient, EGD was unrevealing and colonoscopy had shown polyps which were removed but had not revealed a bleeding site. On initial presentation , patient was tachycardic to 100 and hypotensive to 97/63, which later improved after fluid bolus. Labs were remarkable for Hgb 7.4 and BUN 51. CXR revealed no acute cardiopulmonary process. Patient was admitted for further workup and management of symptomatic anemia. Below are the issues that were actively addressed during current admission: #ABLA 2/2 GI Bleed: Patient was kept NPO and started on Protonix IV. Patient was transfused 2 units of pRBCs with improvement of Hgb to 8.1 the morning following admission. 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 After the procedure, patient was symptom-free and tolerated oral intake. Home aspirin and statin were resumed post-procedure. The plan was to discharge him the following day if he remained stable without any further episodes of bleeding , however his Hgb dropped down to 7.8 the next morning. He was kept inhouse for one more night and transfused 1 unit of pRBCs which brought his Hgb up to 8.8 on the morning of discharge. * Patient was instructed to follow up with a lap winding machine operator after discharge. * Prilosec 20 mg PO QD was added to discharge medications. #Elevated troponin: Patient had mild elevation in his troponins to 0.11, however troponin curve remained flat and serial EKGs showed normal sinus rhythm and no ST-T wave abnormalities. Cardiology was consulted given patient's history of CAD who felt that this represented demand ischemia. * Patient will resume home aspirin and statin on discharge. * Patient was instructed to follow up with his chief of harbor patrol in [place] as soon as possible. #Infrarenal AAA: CT Abdomen/Pelvis in January 2015 had shown that the aneurysm had grown in size from 4.2 cm in July 2013 to 4.5 cm. Abdominal aorta ultrasound was performed to evaluate for interval growth which showed that infrarenal AAA had remained stable in size since January 2015. * Metoprolol succinate 25 mg PO QD was added to discharge medications. Allergies: Coded Allergies: NO KNOWN ALLERGIES (01/29/15) Significant Procedures: EGD with cautery (02/05/16) Disposition Summary Disposition Principal Diagnosis: Symptomatic anemia Additional Diagnosis: Upper GI bleed Vascular lesion of gastric fundus (probable Dieulafoy lesion) Duodenitis Elevated troponin Discharge Disposition: home or self care Discharge Instructions General Discharge Information Code Status: Full Code Patient's Diet: Heart Healthy Patient's Activity: Full Activity/No Limits Follow-Up Instructions/Appts: Please see your primary care physician within one week of discharge. Please follow up with your lap winding machine operator and chief of harbor patrol within two weeks of discharge. Medications at Discharge Discharge Medications: Continue taking these medications: Atorvastatin (Atorvastatin Calcium) 80 MG TAB 80 Milligram ORAL DAILY Comments: Last Taken:02/02/15 Time:4:43 PM Folic Acid (Folic Acid) 1 MG TABLET 1 Tablet ORAL DAILY Comments: NOT GIVEN IN HOSPITAL Cyanocobalamin (Vitamin B-12) (B-12) 1,000 MCG TABLET 1 Tablet ORAL DAILY Comments: NOT GIVEN IN HOSPITAL Aspirin (Aspirin*) 81 MG TAB.CHEW 1 Tablet ORAL DAILY Comments: Last Taken: 02/07/16 Time: 9AM Amoxicillin/Clavulanate Potass (Amox-Clav 875-125 MG Tablet) 875 MG-125 MG TABLET 1 Tablet ORAL TWICE DAILY Comments: NOT GIVEN IN HOSPITAL Start taking the following new medications: Metoprolol Succinate (Metoprolol Succinate) 25 MG TAB 1 Tablet ORAL DAILY Qty = 30 No Refills Comments: Last Taken: 02/07/16 Time: 9AM Omeprazole Magnesium (Prilosec Otc) 20 MG TABLET.DR 1 Tablet ORAL DAILY Qty = 30 No Refills Comments: Last Taken: 02/07/16 Time: 6AM Copies To: LÓPEZ SANDERSON,IMMANUEL Henderson; FARIDA SANDERSON,ANTONY Ocampo; MING SANDERSON PhD,HIRAM Henderson
== END 2016-02-07 10:30 | DRG 378 ==
LOC: ERH 11:15 → ERHI 14:06 → 1NO 14:06
PROVIDERS: Dermatology; Emergency Medicine; Internal Medicine Hematology & Oncology; Ophthalmology; Student in an Organized Health Care Education/Training Program; ADMIT Internal Medicine
PROC: 30233N1 Transfusion of Nonautologous Red Blood Cells into Peripheral Vein, Percutaneous Approach (ICD-10-PCS; 2016-02-04)
PROC: 0W3P8ZZ Control Bleeding in Gastrointestinal Tract, Via Natural or Artificial Opening Endoscopic (ICD-10-PCS; principal; 2016-02-05)
DX: K31.82 Dieulafoy lesion (hemorrhagic) of stomach and duodenum (principal); D62 Acute posthemorrhagic anemia; I50.32 Chronic diastolic (congestive) heart failure; I24.8 Other forms of acute ischemic heart disease; I48.2 Chronic atrial fibrillation; K29.80 Duodenitis without bleeding; I25.10 Atherosclerotic heart disease of native coronary artery without angina pectoris; F17.210 Nicotine dependence, cigarettes, uncomplicated; Z93.3 Colostomy status; I71.4 Abdominal aortic aneurysm, without rupture; Z85.46 Personal history of malignant neoplasm of prostate
CPT/HCPCS: 1NP; 36415; 76770; 81001; 82436; 86920; 87086; 93005; 93010; 93970; 96374; 96375; J3490; J7060; P9016

== ENCOUNTER 2016-07-08 10:38 | Emergency (ER) | payer OTHER ==
[~2016-07-08] VITALS: Ht 180.3 cm; Wt 78.0 kg
[~2016-07-08 10:38] MED LIST changes: +AMOX-CLAV 875-1 EACH PO; +ASPIRIN81 M4 PO; +B-121000 MC3 PO; +FOLIC ACID1 M1 PO; +METOPROLOL SUCC25 M1 PO; +PRILOSEC OTC20 M1 PO
[2016-07-08] MEDS ORDERED: PENTOXIFYLLINE400 M1 PO (11:05)
--- NOTE | 2016-07-08 11:12 | ED GI/GU/ABDOMINAL COMPLAINT ---
History of Present Illness General Chief Complaint: General Adult Stated Complaint: STENT CAME OUT Source: patient Exam Limitations: no limitations Vital Signs & Intake/Output Vital Signs & Intake/Output Vital Signs Date Time Temp Pulse Resp B/P B/P Pulse O2 O2 Flow FiO2 Mean Ox Delivery Rate 07/08 1327 98.5 93 14 109/78 97 Room Air 07/08 1047 97.6 72 18 115/78 100 Room Air Allergies Coded Allergies: NO KNOWN ALLERGIES (01/29/15) Reconcile Medications Aspirin (Aspirin*) 81 MG TAB.CHEW 1 TAB PO DAILY SUPPLEMENT (Reported) Atorvastatin Calcium 80 MG TABLET 1 TAB PO DAILY CHOLESTEROL (Reported) Cyanocobalamin (Vitamin B-12) (B-12) 1,000 MCG TABLET 1 TAB PO DAILY SUPPLEMENT (Reported) Folic Acid 1 MG TABLET 1 TAB PO DAILY SUPPLEMENT (Reported) Metoprolol Succinate 25 MG TAB 1 TAB PO DAILY ABDOMINAL AORTIC ANEURYSM Pentoxifylline 400 MG TABLET.ER 1 TAB PO TID UNKNOWN (Reported) Triage Note: PT TO TRIAGE FOR "MY KIDNEY STENT CAME OUT" PT REPORTING HE HAD A STENT PLACED APPROX 3 WEEKS AGO AND NOTICED THAT THE STENT CAME OUT IN HIS UROSTOMY BAG (HX OF PROSTATE CANCER) YESTERDAY AM. PT REPORTING HIS BAG HAS BEEN DRAINING NORMAL, NO OTHER COMPLAINTS. PT STATING STENT WAS PLACED IN [place], UNSURE OF WHO IS CT UROLOGIST IS. Triage Nurses Notes Reviewed? yes HPI: Patient presents for replacement of a ureteral stent placed about 3 weeks ago in [place]. Patient states that his kidney function was only 56% and that he needed a stent placed otherwise he is going to lose his kidney. He states the stent ended up in his urostomy bag today and he is fearful that he will lose his kidney if it is not replaced. Patient has no specific complaint at this time. Past History Travel History Traveled to [place] past 21 day No Medical History Any Pertinent Medical History? see below for history Neurological: NONE EENT: [place] Cardiovascular: CAD (s/p stent x2), hypertension Respiratory: pneumonia Gastrointestinal: COLOSTOMY FISTULA REPAIRED Hepatic: NONE Renal: UROSTOMY BLADDER REMOVED PROSTATE REMOVED HAS CATH IN [place]ENIS FOR DRA ROBLES Musculoskeletal: ARTHRITIS Psychiatric: NONE Endocrine: NONE Blood Disorders: NONE Cancer(s): prostate cancer Other Medical Hx: Abdominal aortic aneurysm History of MRSA: No History of VRE: No History of CDIFF: No Surgical History Surgical History: hernia repair-inguinal, urostomy colostomy rectocutaneous fistula fractured finger on left hand colostomy cystoprostatectomy Psychosocial History Who do you live with Spouse Services at Home None What is your primary language Spanish Tobacco Use: Never used ETOH Use: occasional use Illicit Drug Use: denies illicit drug use Family History Hx Contributory? No Review of Systems Review of Systems Constitutional: Reports: no symptoms. EENTM: Reports: no symptoms. Respiratory: Reports: no symptoms. Cardiovascular: Reports: no symptoms. GI: Reports: no symptoms. Genitourinary: Reports: see HPI. Musculoskeletal: Reports: no symptoms. Skin: Reports: no symptoms. Neurological/Psychological: Reports: no symptoms. Hematologic/Endocrine: Reports: no symptoms. Immunologic/Allergic: Reports: no symptoms. All Other Systems: Reviewed and Negative Physical Exam Physical Exam Gastrointestinal: SEE BELOW Comments: Gen.: Well-nourished, well-developed, no acute respiratory distress. Head: Normocephalic, atraumatic. Eyes: Normal inspection bilaterally Ears: Normal inspection bilaterally Nose: Normal inspection Throat/mouth : Moist mucosa Neck: Supple, full range of motion, no goiter Lungs: Respirations Back: Normal range of motion Abdomen: Soft, nontender, nondistended, normal bowel sounds Extremities: Normal range of motion grossly Neurologic: Cranial nerves grossly intact, speech is clear Skin: warm and dry Psychiatric: Calm, cooperative, no apparent delusions or hallucinations Core Measures ACS in differential dx? No Severe Sepsis Present: No Septic Shock Present: No Progress Differential Diagnosis: EXTRUDED UROSTOMY STENT Plan of Care: Orders Procedure Date/time Status CBC WITHOUT DIFFERENTIAL 07/08 1202 Complete BASIC METABOLIC PANEL 07/08 1202 Complete Laboratory Tests 07/08/16 1230: Anion Gap 9, Estimated GFR > 60, BUN/Creatinine Ratio 20.0, Glucose 99, Calcium 9.2, CBC w Diff NO MAN DIFF REQ, RBC 4.69 L, MCV 85.7, MCH 27.7, RDW 20.0 H, MPV 8.4, Gran % 75.6 H, Lymphocytes % 16.2 L, Monocytes % 7.0, Eosinophils % 1.0, Basophils % 0.2, Absolute Granulocytes 4.2, Absolute Lymphocytes 0.9 L, Absolute Monocytes 0.4, Absolute Eosinophils 0.1, Absolute Basophils 0, PUBS MCHC 32.3 L Diagnostic Imaging: Discussed w/RAD: CT Scan. Radiology Impression: PATIENT: NORMAN TERRAZAS PRESENT AGE: 75 PATIENT ACCOUNT NO: [id number] : 42 LOCATION: [facility] ([place] ORDERING PHYSICIAN: SHAMAR RAHMAN MD SERVICE DATE: 07/08/162 EXAM TYPE: CAT - CT ABD & PELVIS W/O IV CONTRAS EXAMINATION: CT ABDOMEN AND PELVIS WITHOUT CONTRAST CLINICAL INFORMATION: Right ureteral stent extruded. Presumptive diagnosis: Hydronephrosis. COMPARISON: CT of the abdomen and pelvis 01/30/2015. Ultrasound of aorta 02/04/2016. TECHNIQUE: Multidetector volumetric imaging was performed from the superior aspect of the liver through the pubic symphysis. Sagittal and coronal reformatted images were obtained on the technologist's workstation. DLP: 358.90 mGy-cm. FINDINGS: LUNG BASES: There is a new area of somewhat rounded atelectasis in the posteromedial right lower lobe. There is minor atelectasis at the left lung base. There are scattered coronary artery calcifications. LIVER, GALLBLADDER, AND BILIARY TREE: The liver is normal in size, shape, and attenuation. No focal hepatic lesion or biliary ductal dilatation is present. The gallbladder is unremarkable with no evidence of radiopaque gallstones, gallbladder wall thickening, or obvious pericholecystic inflammatory changes. PANCREAS: Unremarkable. SPLEEN: Unremarkable. ADRENAL GLANDS: Unremarkable. KIDNEYS AND URETERS: There is marked right hydronephrosis and moderate dilatation of the right ureter extending to the ileal conduit. There is diffuse cortical thinning in the right kidney. The left kidney is unremarkable. BLADDER: Status post cystectomy. GASTROINTESTINAL TRACT: Status post distal colectomy with left lower quadrant ileostomy. Scattered colonic diverticula without evidence of diverticulitis. The small bowel is unremarkable. The cecum and normal-appearing appendix now reside in the lower pelvis. ABDOMINAL WALL: No significant hernia is appreciated. LYMPH NODES: Normal. VASCULAR: There is a stable infrarenal abdominal aortic aneurysm measuring approximately 4.5 cm in maximum AP dimension. There are diffuse atherosclerotic calcifications in the abdominal aorta and scattered in the mesenteric vessels. PELVIC VISCERA: There is rounded soft tissue density, measuring slightly higher than water density, in the lower pelvis posterior to the symphysis pubis, measuring 3.8 x 5.2 x 4.4 cm. This may represent a postoperative or postinflammatory complex fluid collection. OSSEOUS STRUCTURES: There is a stable scoliosis of the spine. There are stable multilevel degenerative changes, including [id number] degenerative disc disease at L5-S1. There is stable severe osteoarthritis of the left hip and mild osteoarthritis of the right hip. IMPRESSION: 1. New area of somewhat rounded atelectasis in the posteromedial right lower lobe. Minor left base atelectasis. 2. Marked right hydronephrosis and moderate dilatation of the right ureter extending to the ileal conduit. 3. Persistent colonic diverticulosis without evidence of diverticulitis. 4. Possible complex fluid collection posterior to the symphysis pubis which may be postoperative or postinflammatory. 5. Stable infrarenal abdominal aortic aneurysm measuring 4.5 cm. DICTATED BY: MALDONADO ONEAL MD DATE/TIME DICTATED:07/08/161227 BRANCH ASSOCIATE TELLER:ARGELIA DATE/TIME TRANSCRIBED:07/08/161227 CONFIDENTIAL, DO NOT COPY WITHOUT APPROPRIATE AUTHORIZATION. <Electronically signed in Other Vendor System> SIGNED BY: MALDONADO ONEAL MD 07/08/16 1305 Initial ED EKG: none Departure Departure Disposition: HOME OR SELF CARE Condition: Stable Clinical Impression Primary Impression: Hydronephrosis, right Secondary Impressions: Aortic aneurysm Qualifiers: Aortic location: abdominal aorta Presence of rupture: without rupture Qualified Code: I71.4 - Abdominal aortic aneurysm, without rupture Referrals: LÓPEZ SANDERSON,IMMANUEL Henderson (PCP/Family) HYUN SANDERSON,TESSA TOVAR MD,MARKO Additional Instructions: Follow-up with Dr. Tovar in his office on Monday at 11 AM regarding the ureteral stent. Notify your primary care doctor of this emergency department visit and treatment plan. You have an abdominal aortic aneurysm that will need monitoring and possibly even treatment. You should see a vascular surgeon (such as Dr. Sullivan) in follow-up regarding this finding. Return if any concerns or sudden worsening. Please note that there might be incidental findings in your evaluation that are unrelated to the current emergency department visit. Please notify your primary care doctor about this emergency department visit in order to obtain and review all of the testing performed so that these incidental findings can be monitored as needed. If you had an x-ray performed, please understand that some fractures may not be seen on the initial set of x-rays. If your symptoms persist you might need a repeat set of x-rays to check for such a fracture. If you had a laceration evaluated, please understand that foreign bodies such as glass or wood may not be visible to the naked eye or on plain x-rays. If the wound becomes red, swollen, increasingly more painful or if there is any drainage from the wound, please have it reevaluated by a physician for the possibility of a retained foreign body. Thank you for choosing the [facility] Emergency Department for your care. It was a pleasure to serve you today. Shamar Rahman M.D. [facility] Departure Forms: Customer Survey General Discharge Information
[2016-07-08 12:41] LABS: ABSOLUTE BASOPHIL COUNT 0 /CUMM (0.0-0.2); ABSOLUTE EOSINOPHIL COUNT 0.1 /CUMM (0.0-0.7); ABSOLUTE GRANULOCYTE CT 4.2 /CUMM (1.4-6.5); ABSOLUTE LYMPH COUNT 0.9 /CUMM (1.2-3.4); ABSOLUTE MONOCYTE COUNT 0.4 /CUMM (0.10-0.60); BASOPHIL % 0.2 % (0.0-2.0); GRANULOCYTE % 75.6 % (42.2-75.2); HEMATOCRIT 40.2 % (42-52); MEAN CORPUSCULAR HGB 27.7 PG (27.0-31.0); MEAN CORPUSCULAR HGB CONC 32.3 G/DL (33.0-37.0); MEAN CORPUSCULAR VOLUME 85.7 FL (80.0-94.0); MEAN PLATELET VOLUME 8.4 FL (7.4-10.4); PLATELET COUNT 231 /CUMM (130-400); RED BLOOD CELL CT 4.69 /CUMM (4.70-6.10); WHITE BLOOD CELL COUNT 5.6 /CUMM (4.8-10.8)
--- NOTE | 2016-07-08 13:05 | CT SCAN REPORT ---
EXAMINATION: CT ABDOMEN AND PELVIS WITHOUT CONTRAST CLINICAL INFORMATION: Right ureteral stent extruded. Presumptive diagnosis: Hydronephrosis. COMPARISON: CT of the abdomen and pelvis 01/30/2015. Ultrasound of aorta 02/04/2016. TECHNIQUE: Multidetector volumetric imaging was performed from the superior aspect of the liver through the pubic symphysis. Sagittal and coronal reformatted images were obtained on the technologist's workstation. DLP: 358.90 mGy-cm. FINDINGS: LUNG BASES: There is a new area of somewhat rounded atelectasis in the posteromedial right lower lobe. There is minor atelectasis at the left lung base. There are scattered coronary artery calcifications. LIVER, GALLBLADDER, AND BILIARY TREE: The liver is normal in size, shape, and attenuation. No focal hepatic lesion or biliary ductal dilatation is present. The gallbladder is unremarkable with no evidence of radiopaque gallstones, gallbladder wall thickening, or obvious pericholecystic inflammatory changes. PANCREAS: Unremarkable. SPLEEN: Unremarkable. ADRENAL GLANDS: Unremarkable. KIDNEYS AND URETERS: There is marked right hydronephrosis and moderate dilatation of the right ureter extending to the ileal conduit. There is diffuse cortical thinning in the right kidney. The left kidney is unremarkable. BLADDER: Status post cystectomy. GASTROINTESTINAL TRACT: Status post distal colectomy with left lower quadrant ileostomy. Scattered colonic diverticula without evidence of diverticulitis. The small bowel is unremarkable. The cecum and normal-appearing appendix now reside in the lower pelvis. ABDOMINAL WALL: No significant hernia is appreciated. LYMPH NODES: Normal. VASCULAR: There is a stable infrarenal abdominal aortic aneurysm measuring approximately 4.5 cm in maximum AP dimension. There are diffuse atherosclerotic calcifications in the abdominal aorta and scattered in the mesenteric vessels. PELVIC VISCERA: There is rounded soft tissue density, measuring slightly higher than water density, in the lower pelvis posterior to the symphysis pubis, measuring 3.8 x 5.2 x 4.4 cm. This may represent a postoperative or postinflammatory complex fluid collection. OSSEOUS STRUCTURES: There is a stable scoliosis of the spine. There are stable multilevel degenerative changes, including [id number] degenerative disc disease at L5-S1. There is stable severe osteoarthritis of the left hip and mild osteoarthritis of the right hip. IMPRESSION: 1. New area of somewhat rounded atelectasis in the posteromedial right lower lobe. Minor left base atelectasis. 2. Marked right hydronephrosis and moderate dilatation of the right ureter extending to the ileal conduit. 3. Persistent colonic diverticulosis without evidence of diverticulitis. 4. Possible complex fluid collection posterior to the symphysis pubis which may be postoperative or postinflammatory. 5. Stable infrarenal abdominal aortic aneurysm measuring 4.5 cm.
[2016-07-08 13:27] VITALS: BP 109/78
== END 2016-07-08 13:31 ==
LOC: ERH 10:38
PROVIDERS: Emergency Medicine
DX: N13.30 Unspecified hydronephrosis (principal); I71.9 Aortic aneurysm of unspecified site, without rupture
CPT/HCPCS: 74176